=== PATIENT | male | born 1985 | race Caucasian/White ===

== ENCOUNTER 2018-08-14 17:26 | Emergency (ER) | payer MEDICAID, OTHER ==
[~2018-08-14] VITALS: Ht 180.3 cm; Wt 79.6 kg
[2018-08-14 18:56] LABS: CLARITY,URINE CLEAR (Clear); COLOR,URINE YELLOW (Yellow); GLUCOSE, URINE NEGATIVE (Neg); KETONES,URINE NEGATIVE (Neg); LEUKOCYTE ESTERASE ,URINE NEGATIVE (Neg); NITRITES, URINE NEGATIVE (Neg); OCCULT BLOOD,URINE TRACE-INTACT (Neg); PROTEIN,URINE NEGATIVE (Neg); UA COLLECTION TYPE CLN CATCH MIDSTREAM; UROBILINOGEN,URINE 0.2 E.U/dL (0.2-1.0)
[2018-08-14 19:01] LABS: BACTERIA,URINE NONE SEEN /HPF (Neg); RBC,URINE 0-2 /HPF (0-2); SQUAMOUS EPITHELIAL CELL,UR NONE SEEN /LPF (FEW); WBC,URINE NONE SEEN /HPF (0-4)
[2018-08-14 19:04] LABS: URINE AMPHETAMINE SCREEN POSITIVE (Neg); URINE BARBITUATE SCREEN NEGATIVE (Neg); URINE BENZODIAZEPINES SCREEN NEGATIVE (Neg); URINE CANNABINOID SCREEN NEGATIVE (Neg); URINE COCAINE SCREEN NEGATIVE (Neg); URINE METHADONE SCREEN NEGATIVE (Neg); URINE OPIATE SCREEN NEGATIVE (Neg); URINE PHENCYCLIDINE SCREEN NEGATIVE (Neg)
--- NOTE | 2018-08-14 19:27 | NUR ---
tele psych called,
[2018-08-14 19:38] LABS: BASOPHILS % (AUTO) 0.4 % (0-1); EOSINOPHILS # (AUTO) 0.2 X10'3 (0-0.9); EOSINOPHILS % (AUTO) 3.9 % (0-6); HEMATOCRIT 39.2 % (42.0-52.0); HEMOGLOBIN 13.2 g/dl (14.0-17.9); LYMPHOCYTES % (AUTO) 49.7 % (21-51); MEAN CORPUSCULAR HEMOGLOBIN 29.2 PG (27.0-31.0); MEAN CORPUSCULAR HGB CONC 33.5 % (33.0-36.5); MEAN CORPUSCULAR VOLUME 87.1 FL (78-98); MEAN PLATELET VOLUME 8.3 FL (7.4-10.4); MONOCYTES # (AUTO) 0.5 X10'3 (0-0.9); MONOCYTES % (AUTO) 9.5 % (2-12); NEUTROPHILS # (AUTO) 2.1 X10'3 (1.8-7.7); NEUTROPHILS % (AUTO) 36.5 % (42-75); PLATELET COUNT 255 X10'3 (140-440); RED CELL DISTRIBUTION WIDTH 12.6 % (11.5-14.5); WHITE BLOOD COUNT 5.8 X10'3 (4.5-11.0)
[2018-08-14 19:39] LABS: ALANINE AMINOTRANSFERASE 55 U/L (12-78); ALBUMIN 3.5 G/DL (3.4-5.0); ALBUMIN/GLOBULIN RATIO 0.8 (1.1-1.5); ALKALINE PHOSPHATASE 83 IU/L (46-116); ANION GAP 12 (8-16); ASPARTATE AMINO TRANSFERASE 28 U/L (10-37); BILIRUBIN,TOTAL 0.3 MG/DL (0.1-1.0); BLOOD UREA NITROGEN 17 MG/DL (7-18); BUN/CREATININE RATIO 18.3 (5.4-32.0); CALCIUM 8.2 MG/DL (8.5-10.1); CHLORIDE 103 MMOL/L (99-107); CREATININE 0.93 MG/DL (0.60-1.10); POTASSIUM 3.9 MMOL/L (3.5-5.1); SODIUM 140 MMOL/L (135-145); TOTAL CARBON DIOXIDE 25.4 MMOL/L (24-32); TOTAL PROTEIN 7.9 G/DL (6.4-8.2); eGFR > 90 ML/MIN
[2018-08-14 19:41] LABS: GLUCOSE 87 MG/DL (70-104)
[2018-08-14 19:55] LABS: ETHANOL 0.022 GM/DL (0.0-0.010)
[2018-08-14] MEDS ORDERED: ESCI5TAB PO (23:00)
[2018-08-14] MEDS ORDERED: OLAN5TAB3 PO (23:00)
[2018-08-14] MEDS ORDERED: olanzapine 10mg tablet PO PRN (23:25)
[2018-08-14] MEDS ORDERED: OLANZapine **IM** 10 mg inj. IM PRN (23:25)
[2018-08-14] MEDS ORDERED: acetaminophen 325mg tablet PO PRN (23:25)
[2018-08-14] MEDS ORDERED: OLANZapine 2.5MG tablet PO ONE (23:35)
[2018-08-14] MEDS: LORazepam 1 MG tablet PO PRN (23:42)
--- NOTE | 2018-08-15 06:30 | NUR ---
Asleep upon change of shift observation. Undisturbed at this time.
--- NOTE | 2018-08-15 08:30 | NUR ---
Awakened for breakfast and AM medications. Pleasant upon approach. Asked what brought him to the hospital. Patient said he was starting to hear voices saying to kill himself. Evasive when presented with additional questions. Rolled over in bed and closed his eyes.
[2018-08-15] MEDS: CITALOpram 10mg tablet PO SCH (08:46)
[2018-08-15] MEDS: LORazepam 1 MG tablet PO PRN (15:57)
--- NOTE | 2018-08-15 17:29 | NUR ---
Patient slept for the entire day except when awakened for meals. Avoided conversation with staff. At 1555 asked for medication. Annoyed that a new patient had been placed in the bed next to him. Medicated with Ativan and Zyprexa PO.
--- NOTE | 2018-08-15 18:52 | NUR ---
Packet faxed to [facility].
--- NOTE | 2018-08-15 20:14 | NUR ---
PT BECAME AGGITATED AFTER BEING DENIED SNACK SINCE HE HAD JUST ATE DINNER. STARTED TO WALK OUT OF UNIT, SECURITY CALLED TO BEDSIDE AND ABLE TO TALK PT INTO LYING BACK DOWN ON BED. ZYPREXA IM GIVEN AND CRACKERS. TOM CHAMBERS RN IN UNIT TO WITNESS BEHAVIOR.
[2018-08-15] MEDS ORDERED: OLANZapine 2.5MG tablet PO SCH (21:00)
--- NOTE | 2018-08-15 22:10 | NUR ---
SLEEPING, NO FURTHER OUTBURSTS AT THIS TIME.
--- NOTE | 2018-08-15 22:19 | NUR ---
Pt asleep on back. RR 14, even and unlabored. No apparent distress @ this time.
[2018-08-16 05:30] VITALS: BP 102/71
--- NOTE | 2018-08-16 06:55 | NUR ---
Pt sleeping on right side. No distress observed. Continue to monitor.
--- NOTE | 2018-08-16 08:00 | NUR ---
Patient up eating breakfast. No distress observed. Continue to monitor.
[2018-08-16] MEDS: CITALOpram 10mg tablet PO SCH (08:17)
--- NOTE | 2018-08-16 09:50 | NUR ---
Jessica from [facility] attempted to evaluate patient. Patient "would not wake up" for interview. Continue to monitor.
--- NOTE | 2018-08-16 11:55 | NUR ---
Pt sleeping supine. Patient told Jessica from [facility] that he is not suicidal. Pt to be discharged.
--- NOTE | 2018-08-16 13:00 | NUR ---
RN brought patient's clothes and advised patient he was going to be discharged. RN had security standing by. Patient got angry and states he is suicidal and needs help. Patient states he has been on meth and was up for 5 days. Patient denies he needs drug rehab. Jessica from [facility] spoke to patient and told him he told her 3 times that he wasn't having suicidal thoughts. Patient screaming and cussing. Pt refused to sign d/c instructions. Patient escorted out by security.
== END 2018-08-16 13:15 | disposition home or self-care (01) ==
LOC: ER 17:27
DX: F23 Brief psychotic disorder (principal); R45.851 Suicidal ideations; F10.129 Alcohol abuse with intoxication, unspecified; F15.10 Other stimulant abuse, uncomplicated; F17.200 Nicotine dependence, unspecified, uncomplicated; Z88.1 Allergy status to other antibiotic agents; Z79.899 Other long term (current) drug therapy; Y90.9 Presence of alcohol in blood, level not specified
CPT/HCPCS: 36415; 80053; 80305; 80320; 81001; 84443; 85025; 96372; 99284; 99285; J3490

== ENCOUNTER 2018-08-30 07:08 | Emergency (ER) | payer MEDICAID ==
[~2018-08-30] VITALS: Ht 180.3 cm; Wt 76.5 kg
[~2018-08-30 07:08] MED LIST: ESCI5TAB PO; OLAN5TAB3 PO
--- NOTE | 2018-08-30 07:15 | NUR ---
Patient brought back from Triage to Bed 24 stating he felt suicidal. All personal belongings inventoried. Patient made comfortable in bed.
[2018-08-30] MEDS ORDERED: OLAN5TAB3 PO (07:41)
[2018-08-30] MEDS ORDERED: ESCI5TAB PO (07:41)
[2018-08-30] MEDS ORDERED: EMTR1TAB18 PO (07:41)
[2018-08-30] MEDS ORDERED: DOLU50TA PO (07:41)
[2018-08-30] MEDS ORDERED: HYDR-3686 PO (07:41)
[2018-08-30 07:57] LABS: CLARITY,URINE CLEAR (Clear); COLOR,URINE YELLOW (Yellow); GLUCOSE, URINE NEGATIVE (Neg); KETONES,URINE NEGATIVE (Neg); LEUKOCYTE ESTERASE ,URINE NEGATIVE (Neg); NITRITES, URINE NEGATIVE (Neg); OCCULT BLOOD,URINE NEGATIVE (Neg); PROTEIN,URINE NEGATIVE (Neg); UROBILINOGEN,URINE 0.2 E.U/dL (0.2-1.0)
[2018-08-30 08:00] LABS: UA COLLECTION TYPE CLN CATCH MIDSTREAM
--- NOTE | 2018-08-30 08:00 | NUR ---
Served breakfast. Ate 90% of his meal. Resting in bed with eyes closed but remains awake.
[2018-08-30 08:04] LABS: URINE AMPHETAMINE SCREEN NEGATIVE (Neg); URINE BARBITUATE SCREEN NEGATIVE (Neg); URINE BENZODIAZEPINES SCREEN POSITIVE (Neg); URINE CANNABINOID SCREEN NEGATIVE (Neg); URINE COCAINE SCREEN NEGATIVE (Neg); URINE METHADONE SCREEN NEGATIVE (Neg); URINE OPIATE SCREEN NEGATIVE (Neg); URINE PHENCYCLIDINE SCREEN NEGATIVE (Neg)
--- NOTE | 2018-08-30 09:00 | NUR ---
Admission interview initiated. Patient states "I don't want to talk." Requested patient answer required questions to the best of his ability. Patient agreed to do so. Affect and mood depressed. Patient states he "feels suicidal." Does not elaborate. When asked what he would do if he was to leave here patient stated "Kill myself." Gave one word answers to staff throughout admission process. Nonspecific about reasons for SI or how he would follow through with ending his life.
[2018-08-30 09:17] LABS: BASOPHILS % (AUTO) 0.4 % (0-1); EOSINOPHILS # (AUTO) 0.2 X10'3 (0-0.9); EOSINOPHILS % (AUTO) 1.6 % (0-6); HEMATOCRIT 42.1 % (42.0-52.0); HEMOGLOBIN 14.1 g/dl (14.0-17.9); LYMPHOCYTES # (AUTO) 2.9 X10'3 (1.1-4.8); LYMPHOCYTES % (AUTO) 26.5 % (21-51); MEAN CORPUSCULAR HEMOGLOBIN 28.7 PG (27.0-31.0); MEAN CORPUSCULAR HGB CONC 33.5 % (33.0-36.5); MEAN CORPUSCULAR VOLUME 85.8 FL (78-98); MEAN PLATELET VOLUME 7.2 FL (7.4-10.4); MONOCYTES # (AUTO) 0.8 X10'3 (0-0.9); MONOCYTES % (AUTO) 6.9 % (2-12); NEUTROPHILS % (AUTO) 64.6 % (42-75); PLATELET COUNT 337 X10'3 (140-440); RED BLOOD COUNT 4.91 X10'6 (4.70-6.10); RED CELL DISTRIBUTION WIDTH 12.3 % (11.5-14.5)
[2018-08-30 09:22] LABS: WHITE BLOOD COUNT 10.9 X10'3 (4.5-11.0)
[2018-08-30] MEDS: TIVICAY 50 MG PO SCH (09:24)
[2018-08-30] MEDS: CITALOpram 10mg tablet PO SCH (09:24)
[2018-08-30] MEDS: DESCOVY PO SCH (09:25)
[2018-08-30 09:30] LABS: ALANINE AMINOTRANSFERASE 34 U/L (12-78); ALBUMIN 3.4 G/DL (3.4-5.0); ALBUMIN/GLOBULIN RATIO 0.6 (1.1-1.5); ALKALINE PHOSPHATASE 89 IU/L (46-116); ANION GAP 11 (8-16); ASPARTATE AMINO TRANSFERASE 21 U/L (10-37); BILIRUBIN,TOTAL 0.4 MG/DL (0.1-1.0); BLOOD UREA NITROGEN 14 MG/DL (7-18); BUN/CREATININE RATIO 13.9 (5.4-32.0); CALCIUM 8.9 MG/DL (8.5-10.1); CHLORIDE 100 MMOL/L (99-107); CREATININE 1.01 MG/DL (0.60-1.10); ETHANOL < 0.010 GM/DL (0.0-0.010); GLUCOSE 89 MG/DL (70-104); SODIUM 137 MMOL/L (135-145); TOTAL CARBON DIOXIDE 26.4 MMOL/L (24-32); TOTAL PROTEIN 8.7 G/DL (6.4-8.2); eGFR 85 ML/MIN
--- NOTE | 2018-08-30 09:30 | NUR ---
Med rec completed, signed by Dr. Coates and sent to the pharmacy. Medications administered as ordered.
--- NOTE | 2018-08-30 10:10 | NUR ---
Telepsyche in process at this time.
--- NOTE | 2018-08-30 12:30 | NUR ---
Dipti from [facility] at bedside to evaluate patient for possible 5150 criteria. Patient met 5150 criteria and was placed on a 72 hour hold.
[2018-08-30] MEDS ORDERED: diazepam 5mg tablet PO ONE (13:00)
--- NOTE | 2018-08-30 13:00 | NUR ---
Addendum Patient slept this AM except when interviwed by [facility]
--- NOTE | 2018-08-30 13:00 | NUR ---
Asleep until lunchtime. Awakened for lunch. Ate a small amount of food. Medicated as ordered. Returned to sleep immediately afterwards.
--- NOTE | 2018-08-30 15:57 | NUR ---
Remains asleep at this time. Breathing WNL at 16 breaths a minute. Color pink.
--- NOTE | 2018-08-30 18:54 | NUR ---
Pt. ate 100% of dinner tray.
[2018-08-30] MEDS: hydrOXYzine 25 MG tablet PO SCH (20:19)
[2018-08-30] MEDS: OLANZapine 5mg rapidly disint. tablet PO SCH (20:19)
--- NOTE | 2018-08-30 22:17 | NUR ---
pt. sleeping at this time. will continue to monitor.
--- NOTE | 2018-08-30 23:23 | NUR ---
Pt asleep on right side. RR 14, even and unlabored. No apparent distress at this time.
--- NOTE | 2018-08-31 01:41 | NUR ---
Pt asleep on right side. RR 13, even and unlabored. No apparent distress at this time.
--- NOTE | 2018-08-31 02:06 | NUR ---
pt. sleeping at this time. no s/s of acute distress. will continue to monitor.
--- NOTE | 2018-08-31 03:15 | NUR ---
pt. sleeping in supine position. no acute distress noted. will continue to monitor.
--- NOTE | 2018-08-31 05:20 | NUR ---
pt. sleeping at this time.
--- NOTE | 2018-08-31 06:25 | NUR ---
Patient sleeping supine. No restlessness observed. Continue to monitor.
--- NOTE | 2018-08-31 08:10 | NUR ---
Patient just finishing eating breakfast. RN went to speak to patient and patient very depressed and didn't want to talk. Patient states he is still feeling suicidal but he didn't have a plan. Patient pulled the covers over his head and turned over. Continue to monitor.
[2018-08-31] MEDS: TIVICAY 50 MG PO SCH (08:11)
[2018-08-31] MEDS: CITALOpram 10mg tablet PO SCH (08:11)
[2018-08-31] MEDS: hydrOXYzine 25 MG tablet PO SCH ×2 (08:11→20:46)
[2018-08-31] MEDS: DESCOVY PO SCH (08:12)
--- NOTE | 2018-08-31 08:50 | NUR ---
Note [place] in EDM - 08/31/18 at 0936 by RIGO Pt ate breakfast and up to BR, steady gait. Patient up to nurses station wanting something for body aches. RN advised patient that she just gave him 5 mg of Valium 20 minutes ago and to let that medication work. RN advised pt that if he still needs something after 0900 to let RN know and she would request ibuprofen from the doctor. Patient went back to his bed and fell asleep. Continue to monitor.
--- NOTE | 2018-08-31 09:45 | NUR ---
Patient continues to sleep, now on right side. No distress observed. Continue to monitor.
--- NOTE | 2018-08-31 12:14 | NUR ---
Patient up to BR, steady gait. No distress observed. Continue to monitor.
--- NOTE | 2018-08-31 13:40 | NUR ---
Patient sleeping supine. No distress observed. Continue to monitor.
--- NOTE | 2018-08-31 15:45 | NUR ---
Patient sleeping supine. No distress observed. Continue to monitor.
[2018-08-31] MEDS ORDERED: diphenhydrAMINE 25mg capsule PO ONE (18:25)
--- NOTE | 2018-08-31 19:50 | NUR ---
SPOKE TO SAMI BARROS PATH TO WELLNESS DISCUSSED PATIENT STATUS PATIENT HAS A FLAT AFFECT, APPEARS DEPRESSED AND STATES THAT HE WOULD COMMIT SUICIDE BY TAKING PILLS. PATIENT STATES THAT HE TOOK A BUS HERE FROM [facility], BUT WOULD NOT STATE HOW HE CHOSE [facility] FROM A OTHER [facility] IN [place]
[2018-08-31] MEDS: OLANZapine 5mg rapidly disint. tablet PO SCH (20:46)
--- NOTE | 2018-08-31 20:48 | NUR ---
PATIENT LAYING SUPINE WITH EYES OPEN
--- NOTE | 2018-08-31 22:48 | NUR ---
PATIENT OFFERED ITEMS FOR ORAL CARE: "LATER"
--- NOTE | 2018-09-01 02:00 | NUR ---
pt asleep on back;rr 13, even & unlabored;no apparent distress @ this time
--- NOTE | 2018-09-01 04:08 | NUR ---
Pt asleep on back. RR 13, ever and unlabored. No apparent distress @ this time.
--- NOTE | 2018-09-01 06:30 | NUR ---
Asleep upon change of shift observation. Breathing even and WNL. Undisturbed at this time
[2018-09-01] MEDS: CITALOpram 10mg tablet PO SCH (08:19)
[2018-09-01] MEDS: hydrOXYzine 25 MG tablet PO SCH ×2 (08:19→20:26)
[2018-09-01] MEDS: TIVICAY 50 MG PO SCH (08:20)
[2018-09-01] MEDS: DESCOVY PO SCH (08:20)
--- NOTE | 2018-09-01 08:30 | NUR ---
Awakened for breakfast and AM medications. Annoyed upon staff approach. States "Leave me alone, I want to sleep." Accepted medications, ate his breakfast, used the bathroom, returned to bed and went to sleep.
--- NOTE | 2018-09-01 12:58 | NUR ---
relieving RN for lunch, pt is sitting on bed eating lunch
--- NOTE | 2018-09-01 14:06 | NUR ---
Up to bathroom. Patient heard to be coughing on occasion. Prefers not to interact with staff.
--- NOTE | 2018-09-01 15:51 | NUR ---
Awake and asking staff for fluids. Patient provided with juice and fresh water.
[2018-09-01] MEDS ORDERED: benzonatate 100mg capsule PO ONE (18:05)
--- NOTE | 2018-09-01 18:37 | NUR ---
Assumed care of pt. 5150 due to S/I, waiting for placement in a F for treatment.
[2018-09-01] MEDS: OLANZapine 5mg rapidly disint. tablet PO SCH (20:26)
--- NOTE | 2018-09-01 20:35 | NUR ---
Pt given evening meds, which he took without problems, he has no complaints except continued cough which seemed unrelieved with meds. He continues to report depression and thoughts and suicide.
--- NOTE | 2018-09-01 22:32 | NUR ---
Pt lying on back, RR even and unlabored, no signs of distress.
--- NOTE | 2018-09-02 01:07 | NUR ---
Pt lying on R side, RR even and unlabored, no signs of distress.
--- NOTE | 2018-09-02 03:16 | NUR ---
Pt lying on L side, RR even and unlabored, no signs of distress.
--- NOTE | 2018-09-02 05:19 | NUR ---
Pt resting on R side, RR even and unlabored, no signs of distress.
[2018-09-02 05:48] VITALS: BP 113/69
[2018-09-02] MEDS: TIVICAY 50 MG PO SCH (08:46)
[2018-09-02] MEDS: CITALOpram 10mg tablet PO SCH (08:46)
[2018-09-02] MEDS: DESCOVY PO SCH (08:46)
[2018-09-02] MEDS: hydrOXYzine 25 MG tablet PO SCH (08:46)
[2018-09-02] MEDS ORDERED: diphenhydrAMINE 25mg capsule PO ONE (09:15)
[2018-09-02] MEDS ORDERED: CITA-311 PO (16:24)
== END 2018-09-02 14:45 | disposition home or self-care (01) ==
LOC: ER 07:09
DX: R45.851 Suicidal ideations (principal); F20.9 Schizophrenia, unspecified; F15.90 Other stimulant use, unspecified, uncomplicated; F29 Unspecified psychosis not due to a substance or known physiological condition; Z88.1 Allergy status to other antibiotic agents; Z79.899 Other long term (current) drug therapy
CPT/HCPCS: 36415; 80053; 80305; 80320; 81003; 85025; 99285; Q0163; Q0177

== ENCOUNTER 2018-09-02 13:40 | Inpatient (IN) | payer MEDICAID ==
[~2018-09-02] VITALS: Ht 180.3 cm; Wt 76.1 kg
[~2018-09-02 13:40] MED LIST changes: +DOLU50TA PO; +EMTR1TAB18 PO; +HYDR-3686 PO
--- NOTE | 2018-09-02 14:45 | NUR ---
Admit note: Pt admitted from the Emergency Department for depression, suicidal ideation. Pt admits to feeling suicidal today and depressed. Pt had a new 5150 written today by [facility]. Pts inventory completed in the ER. PT showers upon arrival. Pt cooperative with questions and admission process. Pt arrived on unit at 1445. Pt states feeling depressed and suicidal. Pt states he has overdosed once before. Pt states he has been admitted to [facility] twice. PT states having history of depression and HIV. Pt admitted by Harsha ORNELAS.
[2018-09-02] MEDS ORDERED: magnesium hydroxide 30ml (MOM) UD suspension PO PRN (16:10)
[2018-09-02] MEDS ORDERED: mag hydrox/Alum hydrox/simeth 30ml oral suspension PO PRN (16:10)
[2018-09-02] MEDS ORDERED: tuberculin, purif. prot. deriv. 5 units/0.1ml ID ONE (16:10)
[2018-09-02] MEDS ORDERED: CITA-311 PO (16:24)
[2018-09-02 19:00] VITALS: BP 123/81
[2018-09-02] MEDS: hydrOXYzine 25 MG tablet PO SCH (20:40)
[2018-09-02] MEDS: acetaminophen 325mg tablet PO PRN (20:43)
[2018-09-02] MEDS ORDERED: OLANZapine 5mg rapidly disint. tablet PO SCH (21:00)
[2018-09-02] MEDS: guaiFENesin/DM 10ml UD oral syrup PO PRN (21:14)
--- NOTE | 2018-09-03 05:22 | NUR ---
Chief Complaint Legal hold:5150 Client involuntary status for DTS. Report received from Stefany GALLARDO with use of SBAR. Why are they here:Pt here due to thoughts of suicide with plan to OD on meds, depression, hx of previous OD, currently homeless. Diagnosis/presenting symptoms:depression/ S/I Assessment What has happened this shift:Pt visible on the unit, watching tv in recreation room and interacting with staff/peers. He continues to endorse depressed mood and thoughts of suicide (denies current intent/plan). Pt was pleasant and cooperative, did c/o sore throat and cough so Tylenol given and order obtained for Robitussin DM. S/I, H/I:still having thoughts of suicide, denies current intent A/VH: denies Sleep:reports sleeping well ADL's: independent Group attendance:no groups scheduled this shift Were meds taken:yes Any med S/E: denies and none observed Mental Status Exam Appearance:well groomed Eye contact:good Behavior:pleasant and cooperative Speech:normal rate, rhthym and volume Mood:depressed Affect:congruent to mood Thought process:linear Thought Content:WNL, no delusions Cognition:intact Insight:fair Judgment:fair Interventions PRN's used:Tylenol, Robitussin DM Therapeutic interventions:1:1, assessment, medication administration and monitored effects and side effects to meds, Q15 checks for safety Restraints/seclusion/emergency medication:none Justification of Continued Inpatient Treatment:Pt admitted due to DTS and continues to endorse thoughts of suicide and feelings of depression.
[2018-09-03 07:51] VITALS: BP 115/71
[2018-09-03] MEDS ORDERED: citalopram 20mg tablet PO SCH (08:00)
[2018-09-03] MEDS ORDERED: escitalopram 20mg tablet PO SCH (08:00)
[2018-09-03] MEDS ORDERED: CITALOpram 10mg tablet PO SCH (08:00)
[2018-09-03] MEDS: citalopram 20mg tablet PO SCH (08:09)
[2018-09-03] MEDS: guaiFENesin/DM 10ml UD oral syrup PO PRN ×2 (08:09→16:45)
[2018-09-03] MEDS: hydrOXYzine 25 MG tablet PO SCH ×2 (08:09→20:17)
[2018-09-03] MEDS: DESCOVY PO SCH (08:13)
[2018-09-03] MEDS: TIVICAY 50 MG PO SCH (08:13)
--- NOTE | 2018-09-03 17:19 | NUR ---
NURSING PROGRESS NOTE Legal hold:5150 Client involuntary status for DTS. Report received from Rafaela GALLARDO with use of SBAR. Why are they here:Pt here due to thoughts of suicide with plan to OD on meds, depression, hx of previous OD, currently homeless. Diagnosis/presenting symptoms:depression/ S/I Assessment What has happened this shift: The patient isolated to room most of day, ate meals and did not attend groups. he watched TV in late afternoon with another patient. he refused to talk with nurse or have assessment. Angry and irritable. Had CXR which was negative. Gave Matti x2 for cough. S/I, H/I: refused to answer A/VH: refused Sleep:isolated to room ADL's: independent Group attendance:none Were meds taken:yes Any med S/E: denies and none observed Mental Status Exam Appearance:well groomed Eye contact: poor Behavior: depressed, irritable Speech: minimal, angry Mood:depressed Affect: irritable Thought process:goal directed Thought Content: unable to assess Cognition:intact Insight:poor Judgment:poor Interventions PRN's used: Matti HAMMOND Therapeutic interventions:1:1, assessment, medication administration and monitored effects and side effects to meds, Q15 checks for safety Restraints/seclusion/emergency medication:none Justification of Continued Inpatient Treatment:Pt admitted due to DTS and continues to endorse thoughts of suicide and feelings of depression.
[2018-09-03] MEDS: acetaminophen 325mg tablet PO PRN (20:16)
[2018-09-03] MEDS: OLANZapine 5mg rapidly disint. tablet PO SCH (20:17)
[2018-09-03 20:49] VITALS: BP 117/79
--- NOTE | 2018-09-03 23:19 | NUR ---
Chief Complaint Legal hold:5150 Client involuntary status for DTS. Report received from Amy GALLARDO with use of SBAR. Why are they here:Pt here due to thoughts of suicide with plan to OD on meds, depression, hx of previous OD, currently homeless. Diagnosis/presenting symptoms:depression/ S/I Assessment What has happened this shift:Pt watching tv in recreation room and was social with staff and peers. He continues to endores depressed mood with thoughts of suicide, but contracts for safety. Pt continues to c/o cough and sore throat. Tylenol given for sore throat pain which was helpful. Pt took evening meds and then went to bed, he appears to be sleeping well. S/I, H/I:continues to endorse thoughts of suicide, denies any current plan/intent A/VH: denies Sleep:sleeping well ADL's: independent Group attendance:no groups scheduled this shift Were meds taken:yes Any med S/E: denies and none observed Mental Status Exam Appearance:well groomed Eye contact:good Behavior:pleasant and cooperative Speech:normal rate, rhthym and volume Mood:depressed Affect:restricted Thought process:linear Thought Content:WNL, no delusions Cognition:intact Insight:fair Judgment:fair Interventions PRN's used:Tylenol Therapeutic interventions:1:1, assessment, medication administration and monitored effects and side effects to meds, Q15 checks for safety, education on changes in meds, pt verbalized understanding. Restraints/seclusion/emergency medication:none Justification of Continued Inpatient Treatment:Pt admitted due to DTS and continues to endorse thoughts of suicide and feelings of depression.
[2018-09-04] MEDS: DESCOVY PO SCH (07:53)
[2018-09-04] MEDS: TIVICAY 50 MG PO SCH (07:53)
[2018-09-04] MEDS: citalopram 20mg tablet PO SCH (07:53)
[2018-09-04] MEDS: hydrOXYzine 25 MG tablet PO SCH ×2 (07:53→20:31)
[2018-09-04 08:00] VITALS: BP 107/72
[2018-09-04 08:28] LABS: CHOL/HDL RATIO 6.1 (0.00-4.99); CHOLESTEROL 122 MG/DL (0-200); HDL CHOLESTEROL 20 MG/DL (35-60); LDL CHOLESTEROL 82 MG/DL (50-100); TRIGLYCERIDES 140 MG/DL (20-135)
[2018-09-04 08:50] LABS: HEMOGLOBIN A1C 5.7 % (4.5-6.2)
[2018-09-04] MEDS: acetaminophen 325mg tablet PO PRN ×2 (12:17→19:12)
[2018-09-04] MEDS: guaiFENesin/DM 10ml UD oral syrup PO PRN ×2 (12:18→19:12)
--- NOTE | 2018-09-04 16:57 | NUR ---
Nursing Progress Note: Chief Complaint Legal hold:5150 Client involuntary status for DTS. Report received from Rafaela GALLARDO with use of SBAR. Why are they here:Pt here due to thoughts of suicide with plan to OD on meds, depression, hx of previous OD, currently homeless. Diagnosis/presenting symptoms:depression/ S/I Assessment Received patient awake in bed with flat to angry affect. Patient resistive to interaction with staff. Patient states he is still very depressed and said its actually getting worse. Patient denied suicidal thoughts at this time and denied auditory hallucinations. Patient refused to get up for breakfast, but did attend lunch. Pt refused both groups and remained laying on his bed. Patient complained of sore throat and stated he was coughing up yellow to green mucus. Hospitalist came and saw him but did not add any additional orders at this time. Patient given Tylenol and cough syrup for throat pain which was mildly effective. Patient did smile and laugh at one point during the day after lunch to a joke. Other than that patient remained flat and depressed all shift. Patient refused 1 to 1 with secondary social studies teacher. S/I, H/I:continues to endorse thoughts of suicide, denies any current plan/intent A/VH: denies Sleep:sleeping well ADL's: independent Group attendance:no groups scheduled this shift Were meds taken:yes Any med S/E: denies and none observed Mental Status Exam Appearance:well groomed Eye contact:good Behavior:pleasant and cooperative Speech: normal rate, rhythm and volume Mood:depressed Affect:restricted Thought process:linear Thought Content:WNL, no delusions Cognition:intact Insight:fair Judgment:fair Interventions PRN's used:Tylenol Therapeutic interventions:1:1, assessment, medication administration and monitored effects and side effects to meds, Q15 checks for safety, education on changes in meds, pt verbalized understanding. Restraints/seclusion/emergency medication:none Justification of Continued Inpatient Treatment:Pt admitted due to DTS and continues to endorse thoughts and feelings of depression.
[2018-09-04 19:00] VITALS: BP 130/75
[2018-09-04] MEDS: OLANZapine 5mg rapidly disint. tablet PO SCH (20:31)
--- NOTE | 2018-09-05 03:51 | NUR ---
Chief Complaint Legal hold:5150 Client involuntary status for DTS. Report received from Magno GALLARDO with use of SBAR. Why are they here:Pt here due to thoughts of suicide with plan to OD on meds, depression, hx of previous OD, currently homeless. Diagnosis/presenting symptoms:depression/ S/I Assessment What has happened this shift:Pt up and visible on the unit, he watches tv, interacts with peers and staff, and pt took shower. He continues to c/o cold s/s and not feeling well, but did state his mood is slightly better tonight. He continues to report some thoughts of suicide, but denies plan/intent. Discussed Rx of Zyprexa and why he takes it, and he voiced some concerns about getting diabetes from the Zyprexa, educated on this and pt verbalized understanding. S/I, H/I:continues to endorse thoughts of suicide, denies any current plan/intent A/VH: denies current hallucinations Sleep:sleeping well ADL's: independent Group attendance:no groups scheduled this shift Were meds taken:yes Any med S/E: denies and none observed Mental Status Exam Appearance:well groomed Eye contact:good Behavior:pleasant and cooperative Speech:normal rate, and volume Mood:depressed Affect:restricted Thought process:linear Thought Content:WNL, no delusions Cognition:intact Insight:fair Judgment:fair Interventions PRN's used:Tylenol. Robitussin DM Therapeutic interventions:1:1, assessment, medication administration and monitored effects and side effects to meds, Q15 checks for safety, education on side effects to Zyprexa, pt verbalized understanding. Restraints/seclusion/emergency medication:none Justification of Continued Inpatient Treatment:Pt admitted due to DTS and continues to endorse thoughts of suicide and feelings of depression.
[2018-09-05 07:52] VITALS: BP 109/71
[2018-09-05] MEDS: DESCOVY PO SCH (07:55)
[2018-09-05] MEDS: TIVICAY 50 MG PO SCH (07:55)
[2018-09-05] MEDS: hydrOXYzine 25 MG tablet PO SCH ×2 (07:55→20:41)
[2018-09-05] MEDS: citalopram 20mg tablet PO SCH (07:56)
[2018-09-05 13:07] LABS: BASOPHILS % (AUTO) 0.2 % (0-1); EOSINOPHILS # (AUTO) 0.4 X10'3 (0-0.9); EOSINOPHILS % (AUTO) 4.2 % (0-6); HEMATOCRIT 41.7 % (42.0-52.0); HEMOGLOBIN 14.4 g/dl (14.0-17.9); LYMPHOCYTES # (AUTO) 2.9 X10'3 (1.1-4.8); LYMPHOCYTES % (AUTO) 29.5 % (21-51); MEAN CORPUSCULAR HEMOGLOBIN 29.8 PG (27.0-31.0); MEAN CORPUSCULAR HGB CONC 34.6 % (33.0-36.5); MEAN PLATELET VOLUME 7.3 FL (7.4-10.4); MONOCYTES # (AUTO) 0.8 X10'3 (0-0.9); MONOCYTES % (AUTO) 7.9 % (2-12); NEUTROPHILS # (AUTO) 5.6 X10'3 (1.8-7.7); NEUTROPHILS % (AUTO) 58.2 % (42-75); PLATELET COUNT 386 X10'3 (140-440); RED BLOOD COUNT 4.85 X10'6 (4.70-6.10); RED CELL DISTRIBUTION WIDTH 13.2 % (11.5-14.5); WHITE BLOOD COUNT 9.7 X10'3 (4.5-11.0)
[2018-09-05 13:15] LABS: ALBUMIN 3.3 G/DL (3.4-5.0); ANION GAP 10 (8-16); BLOOD UREA NITROGEN 11 MG/DL (7-18); BUN/CREATININE RATIO 10.9 (5.4-32.0); CALCIUM 8.5 MG/DL (8.5-10.1); CHLORIDE 99 MMOL/L (99-107); CREATININE 1.01 MG/DL (0.60-1.10); GLUCOSE 99 MG/DL (70-104); POTASSIUM 4.4 MMOL/L (3.5-5.1); SODIUM 135 MMOL/L (135-145); TOTAL CARBON DIOXIDE 25.6 MMOL/L (24-32); eGFR 85 ML/MIN
--- NOTE | 2018-09-05 14:44 | NUR ---
Nursing Progress Note: Chief Complaint: anhedonia, MDD, anxiety Legal hold:5150 Client involuntary status for DTS. Report received from Rafaela GALLARDO with use of SBAR. Why are they here:Pt here due to thoughts of suicide with plan to OD on meds, depression, hx of previous OD, currently homeless. Diagnosis/presenting symptoms:depression/ S/I Assessment Patient was laying in bed at change of shift. He takes his mediation without incident. He is still complaining of green sputum. He has clear breath sounds and his chest x ray was negative. Labs were ordered including calcitonin levels. Patient did socialize in the small group room during the shift. S/I, H/I:continues to endorse thoughts of suicide, denies any current plan/intent A/VH: denies Sleep:sleeping well, naps ADL's: independent Group attendance:no groups scheduled this shift Were meds taken:yes Any med S/E: denies and none observed Mental Status Exam Appearance:well groomed Eye contact:good Behavior:pleasant and cooperative Speech: normal rate, rhythm and volume Mood:depressed Affect:restricted Thought process:linear Thought Content:WNL, no delusions Cognition:intact Insight:fair Judgment:fair Interventions PRN's used:none Therapeutic interventions:1:1, assessment, medication administration and monitored effects and side effects to meds, Q15 checks for safety, education on changes in meds, pt verbalized understanding. Restraints/seclusion/emergency medication:none Justification of Continued Inpatient Treatment:Pt admitted due to DTS and continues to endorse thoughts and feelings of depression.
[2018-09-05] MEDS: guaiFENesin/DM 10ml UD oral syrup PO PRN (19:17)
[2018-09-05] MEDS: acetaminophen 325mg tablet PO PRN (19:17)
[2018-09-05 19:59] VITALS: BP 114/69
[2018-09-05] MEDS: OLANZapine 5mg rapidly disint. tablet PO SCH (20:41)
--- NOTE | 2018-09-05 23:18 | NUR ---
Nursing Progress Note: Chief Complaint: anhedonia, MDD, anxiety Legal hold:5150 Client involuntary status for DTS. Report received from William GALLARDO with use of SBAR. Why are they here:Pt here due to thoughts of suicide with plan to OD on meds, depression, hx of previous OD, currently homeless. Diagnosis/presenting symptoms:depression/ S/I Assessment Patient was watching TV is community room with other pts quietly. Pt was pleasant with newswriter and engaged in conversation with good eye contact. Regrind Mill Operator asks if pt is still feeling suicidal and he replies, "I am still suicidal and I am so depressed." He says that his throat is still hurting and he reports green mucus being coughed up. Pt said Robitussin does help this feeling. He is worried about a place to stay after discharge. S/I, H/I: suicidal ...denies any current plan/intent A/VH: denies Sleep:see sleep assessment notation ADL's: independent Group attendance:no groups scheduled, overnight caregiver Were meds taken: yes Any med S/E: denies and none observed Mental Status Exam Appearance:well groomed Eye contact:good Behavior:pleasant and cooperative Speech: normal rate, rhythm and volume Mood:elevated Affect: pleasant Thought process:linear Thought Content:WNL, no delusions Cognition:intact Insight:fair Judgment:fair Interventions PRN's used:none Therapeutic interventions:1:1, assessment, medication administration and monitored effects and side effects to meds, Q15 checks for safety, education on changes in meds, pt verbalized understanding. Restraints/seclusion/emergency medication:none Justification of Continued Inpatient Treatment:Pt admitted due to DTS and continues to endorse thoughts and feelings of depression.
[2018-09-06] MEDS: DESCOVY PO SCH (07:14)
[2018-09-06] MEDS: hydrOXYzine 25 MG tablet PO SCH ×2 (07:14→20:57)
[2018-09-06] MEDS: TIVICAY 50 MG PO SCH (07:14)
[2018-09-06] MEDS: citalopram 20mg tablet PO SCH (07:14)
[2018-09-06] MEDS: guaiFENesin/DM 10ml UD oral syrup PO PRN ×2 (07:14→16:20)
[2018-09-06 08:00] VITALS: BP 113/66
--- NOTE | 2018-09-06 13:17 | NUR ---
Nursing Progress Note: Chief Complaint: suicidal ideation Legal hold:voluntary Client voluntary status for DTS. Report received from Cande GALLARDO with use of SBAR. Why are they here: Pt here due to thoughts of suicide with plan to OD on meds, depression, hx of previous OD, currently homeless. Diagnosis/presenting symptoms:depression/ S/I Assessment Patient was awakened for medications and assessment. He was cooperative with medications. He got up for breakfast. After breakfast he was watching a movie in the group room. He attended morning group. When asked about group he states "I don't know. I don't remember. You are freaking me out. I am working with the doctor. Go away. I don't want to talk to you. I will talk to the doctor." When asked about his mood patietn states he is suicidal and depressed. S/I, H/I:continues to endorse thoughts of suicide, denies any current plan A/VH: denies Sleep:sleeping well, naps s lot during the day ADL's: independent, showers at night Group attendance: yes Were meds taken:yes Any med S/E: denies and none observed Mental Status Exam Appearance:clean, disheveled Eye contact: poor Behavior: resistant, dismissive, uncooperative Speech: normal rate, rhythm and volume Mood:depressed Affect:restricted Thought process: guarded Thought Content: unable to assess Cognition:intact Insight:poor Judgment:fair Interventions PRN's used:none Therapeutic interventions:1:1, assessment, medication administration and monitored effects and side effects to meds, Q15 checks for safety, education on changes in meds, pt verbalized understanding. Restraints/seclusion/emergency medication:none Justification of Continued Inpatient Treatment:Pt admitted due to DTS and continues to endorse thoughts of suicide.
[2018-09-06] MEDS: azithromycin 250mg tablet PO SCH (15:32)
[2018-09-06 19:34] VITALS: BP 120/74
[2018-09-06] MEDS: OLANZapine 5mg rapidly disint. tablet PO SCH (20:58)
[2018-09-06] MEDS: acetaminophen 325mg tablet PO PRN (20:59)
--- NOTE | 2018-09-06 23:01 | NUR ---
Nursing Progress Note: Chief Complaint: anhedonia, MDD, anxiety Legal hold:5150 Client involuntary status for DTS. Report received from William GALLARDO with use of SBAR. Why are they here:Pt here due to thoughts of suicide with plan to OD on meds, depression, hx of previous OD, currently homeless. Diagnosis/presenting symptoms:depression/ S/I Assessment Patient watches TV in the group room with another patient. Turning Machine Operator approaches pt and asks how he is doing today. He responds, "I can't talk, when I talk I cough." He still says he feels suicidal and depressed. He has no plan. Pt seems content just watching TV and taling with peers. S/I, H/I: suicidal ...denies any current plan/intent A/VH: denies Sleep:see sleep assessment notation ADL's: independent Group attendance:no groups scheduled, night guard Were meds taken: yes Any med S/E: denies and none observed Mental Status Exam Appearance:well groomed Eye contact:good Behavior:pleasant and cooperative Speech: normal rate, rhythm and volume Mood:elevated Affect: pleasant Thought process:linear Thought Content:WNL, no delusions Cognition:intact Insight:fair Judgment:fair Interventions PRN's used:none Therapeutic interventions:1:1, assessment, medication administration and monitored effects and side effects to meds, Q15 checks for safety, education on changes in meds, pt verbalized understanding. Restraints/seclusion/emergency medication:none Justification of Continued Inpatient Treatment:Pt admitted due to DTS and continues to endorse thoughts and feelings of depression.
[2018-09-07] MEDS: citalopram 20mg tablet PO SCH (07:39)
[2018-09-07] MEDS: azithromycin 250mg tablet PO SCH (07:39)
[2018-09-07] MEDS: hydrOXYzine 25 MG tablet PO SCH ×2 (07:39→20:21)
[2018-09-07] MEDS: DESCOVY PO SCH (07:40)
[2018-09-07] MEDS: TIVICAY 50 MG PO SCH (07:40)
[2018-09-07] MEDS: guaiFENesin/DM 10ml UD oral syrup PO PRN ×2 (07:40→19:02)
[2018-09-07 07:42] VITALS: BP 105/63
--- NOTE | 2018-09-07 09:59 | NUR ---
Initial: Pt admitted to [facility] for depression. Pt currently on a regular diet with documented PO intake 100% meeting nutrient needs. LBM 09/06. No edema or wounds. No nutrition diagnosis at this time. Will continue to follow. Recommendations: 1) Continue with regular diet 2) Weekly wt Addendum: 09/07/18 at [address] Amended: Links added.
--- NOTE | 2018-09-07 10:00 | NUR ---
Initial: Pt admitted to [facility] for depression. Pt currently on a regular diet with documented PO intake 100% meeting nutrient needs. LBM 09/06. No edema or wounds. No nutrition diagnosis at this time. Will continue to follow. Recommendations: 1) Continue with regular diet 2) Weekly wt Addendum: 09/07/18 at [address] Amended: Links added.
--- NOTE | 2018-09-07 13:18 | NUR ---
Nursing Progress Note: Chief Complaint: suicidal ideation Legal hold: voluntary Client voluntary status for DTS. Report received from Cande GALLARDO with use of SBAR. Why are they here: Pt here due to thoughts of suicide with plan to OD on meds, depression, hx of previous OD, currently homeless. Diagnosis/presenting symptoms:depression/ S/I Assessment Patient was awakened for medications and assessment. He was cooperative with medications. He got up for breakfast. After breakfast he took a nap. He kept a low profile on the unit. He did attend group but did not interact much with staff or other patients. Most of the day was spent in bed. S/I, H/I:continues to endorse thoughts of suicide, denies any current plan A/VH: denies Sleep:sleeping well, naps a lot during the day ADL's: independent, showers at night Group attendance: yes Were meds taken:yes Any med S/E: denies and none observed Mental Status Exam Appearance:clean, neat Eye contact: poor Behavior: resistant, dismissive, uncooperative Speech: normal rate, rhythm and volume Mood:depressed Affect:restricted Thought process: guarded Thought Content: unable to assess Cognition:intact Insight:poor Judgment:fair Interventions PRN's used: cough syrup Therapeutic interventions:1:1, assessment, medication administration and monitored effects and side effects to meds, Q15 checks for safety, education on changes in meds, pt verbalized understanding. Restraints/seclusion/emergency medication:none Justification of Continued Inpatient Treatment:Pt admitted due to DTS and continues to endorse thoughts of suicide.
[2018-09-07] MEDS ORDERED: benzocaine/menthol oral lozeng 1 EACH BOX MM PRN (17:10)
[2018-09-07 20:11] VITALS: BP 117/82
[2018-09-07] MEDS: OLANZapine 5mg rapidly disint. tablet PO SCH (20:20)
[2018-09-07] MEDS: acetaminophen 325mg tablet PO PRN (20:21)
--- NOTE | 2018-09-08 00:37 | NUR ---
Nursing Progress Note: Chief Complaint: anhedonia, MDD, anxiety Legal hold: voluntary Client involuntary status for DTS. Report received from William GALLARDO with use of SBAR. Why are they here:Pt here due to thoughts of suicide with plan to OD on meds, depression, hx of previous OD, currently homeless. Diagnosis/presenting symptoms:depression/ S/I Assessment Patient watches a movie in the group room with other patients. Loss Prevention Detective approaches pt and asks how he is doing today and he responds, "pretty good today." Loss Prevention Detective asks if pt is still feeling suicidal and he replies, "no, not today, I am feeling depressed still, but not suicidal." Pt continues to watch movie with peers and laugh and make jokes. He did say his chest is beginning to feel better and utilizes PRN cough syrup and throat lozenges. S/I, H/I: "no, not today." A/VH: denies Sleep:see sleep assessment notation ADL's: independent Group attendance:no groups scheduled, manager shift Were meds taken: yes Any med S/E: denies and none observed Mental Status Exam Appearance:well groomed Eye contact:good Behavior:pleasant and cooperative, watches movie and laughs Speech: normal rate, rhythm and volume Mood:elevated Affect: pleasant Thought process:linear Thought Content:WNL, no delusions Cognition:intact Insight:fair Judgment:fair Interventions PRN's used:none Therapeutic interventions:1:1, assessment, medication administration and monitored effects and side effects to meds, Q15 checks for safety, education on changes in meds, pt verbalized understanding. Restraints/seclusion/emergency medication:none Justification of Continued Inpatient Treatment:Pt admitted due to DTS and continues to endorse thoughts and feelings of depression.
[2018-09-08 08:00] VITALS: BP 110/69
[2018-09-08] MEDS: azithromycin 250mg tablet PO SCH (08:17)
[2018-09-08] MEDS: DESCOVY PO SCH (08:18)
[2018-09-08] MEDS: hydrOXYzine 25 MG tablet PO SCH ×2 (08:18→20:44)
[2018-09-08] MEDS: TIVICAY 50 MG PO SCH (08:18)
[2018-09-08] MEDS: citalopram 20mg tablet PO SCH (08:18)
[2018-09-08] MEDS: guaiFENesin/DM 10ml UD oral syrup PO PRN (16:59)
--- NOTE | 2018-09-08 17:21 | NUR ---
Nursing Progress Note: Chief Complaint: anhedonia, MDD, anxiety Legal hold: voluntary Client involuntary status for DTS. Report received from Cande GALLARDO with use of SBAR. Why are they here:Pt here due to thoughts of suicide with plan to OD on meds, depression, hx of previous OD, currently homeless. Diagnosis/presenting symptoms: MDD (major depressive disorder), recurrent, severe, with psychosis, Social anxiety disorder Assessment Patient gets up to take morning medicaitons. He is not conversational. He goes to group room to eat breakfast with others and then directly after returns to his room. He does not get up for morning group and when asked states Im going to the 2:00 group. He denies any needs other than sleep. Patient is observed attending afternoon group and then promply returns to his room to sleep. He keeps his face covered from the light. Patient leaves him room around 1700 and requests cough syrup, he denies sore throat. He sits with others in group room to health system tbrit RN attempted to engaged patient in conversation. Patient states that he is not feeling suicidal but is still depressed. He then states I dont want to talk about it. S/I, H/I: denies A/VH: none reported Sleep:slept 7.75hrs last night and slept late in the morning ADL's: independent, showered today Group attendance: attended afternoon group Were meds taken: yes Any med S/E: none reported, none observed Mental Status Exam Appearance: appropriate Eye contact: none Behavior: cooperative, not engaging, distant Speech:soft tone, not conversational Mood: depresssed Affect: flat Thought process:linear Thought Content:WNL Cognition: A/Oxs4 Insight:fair Judgment:fair Interventions PRN's used:none Therapeutic interventions: Attempted 1:1 therapeutic conversation and bulid rapport, Q15 checks for safety. Restraints/seclusion/emergency medication: none Justification of Continued Inpatient Treatment: Pt admitted due to DTS and continues to endorse thoughts and feelings of depression. Continued therapeutic support and medication management needed to provide stabalization, prevent decomensation, decreasing risk to patinet and readmittance.
[2018-09-08] MEDS: OLANZapine 5mg rapidly disint. tablet PO SCH (20:44)
[2018-09-08 20:45] VITALS: BP 109/71
--- NOTE | 2018-09-09 01:25 | NUR ---
Nursing Progress Note: Chief Complaint: Anhedonia, MDD, anxiety Legal hold: voluntary Client involuntary status for DTS. Report received from Stefany GALLARDO. Why are they here:Patient here due to thoughts of suicide with plan to OD on medications, depression, hx of previous OD, currently homeless. Diagnosis/presenting symptoms: MDD (major depressive disorder), recurrent, severe, with psychosis, Social anxiety disorder Assessment Patient is up in the group room at change of shift. When greeted patient stares blankly and appears annoyed. He later states his frustration at receiving a new roommate, during is assessment. Patient agrees to 1:1 assessment but refuses to leave group room, and okays assessment being done in the group room. Patient expresses he is still depressed, but denies SI. He spends the majority of the shift in the group room watching TV, with minimal to no interaction with others. Once he receives his HS medications he watches some more TV, then turns himself to his room and puts himself to bed. S/I, H/I: Denies A/VH: None Reported Sleep: Currently Sleeping ADL's: Independents Group attendance: No groups this shift Were meds taken: Yes Any med S/E: None reported or observed Mental Status Exam Appearance: Appropriate, well groomed Eye contact: None Behavior: Cooperative, minimal engagement in conversation Speech: Normal volume, rate and rhythm Mood: Depressed Affect: Congruent to mood, flat Thought process: Linear Thought Content:WNL Cognition: A/O x4 Insight: Fair Judgment: Fair Interventions PRN's used: None Therapeutic interventions: 1:1 assessment with patient. Provided safe therapeutic environment to attempt to establish rapport. Medication education, and administration. Monitor for medication side effects. Q 15 minute safety checks. Restraints/seclusion/emergency medication: None Justification of Continued Inpatient Treatment: Patient admitted due to DTS and continues to endorse thoughts and feelings of depression. Continued therapeutic support and medication management needed to provide stabilization, prevent decompensation, decreasing risk to patient and readmittance.
[2018-09-09 08:00] VITALS: BP 108/66
[2018-09-09] MEDS: hydrOXYzine 25 MG tablet PO SCH ×2 (08:02→20:10)
[2018-09-09] MEDS: citalopram 20mg tablet PO SCH (08:02)
[2018-09-09] MEDS: TIVICAY 50 MG PO SCH (08:03)
[2018-09-09] MEDS: DESCOVY PO SCH (08:03)
[2018-09-09] MEDS: guaiFENesin/DM 10ml UD oral syrup PO PRN (15:35)
--- NOTE | 2018-09-09 17:16 | NUR ---
Nursing Progress Note: Chief Complaint: anhedonia, MDD, anxiety Legal hold: voluntary Client involuntary status for DTS. Report received from Cande GALLARDO with use of SBAR. Why are they here:Pt here due to thoughts of suicide with plan to OD on meds, depression, hx of previous OD, currently homeless. Diagnosis/presenting symptoms: MDD (major depressive disorder), recurrent, severe, with psychosis, Social anxiety disorder Assessment Patient gets up to take morning medications. He again, is not conversational. Patient denies any questions related to his medications and requests to not be bothered. Patient did join others in the group room for breakfast and then promptly returned to his bed. In the afternoon patient met with Gunjan with [facility]. Plan is to have patient discharge to [facility]. Reports received that after this meeting patient stated This is the best day of my life and engaged in conversation with others r/t [facility]. Patient then takes a shower and changes clothing. He is observed int he Rec room looking out the window. His affect is softened and he makes direct eye contact. S/I, H/I: denies A/VH: none reported Sleep: reports sleeping well and slept late in the morning ADL's: independent, showered today Group attendance: attended afternoon group Were meds taken: yes Any med S/E: none reported, none observed Mental Status Exam Appearance: appropriate Eye contact: direct eey contact made twice Behavior: cooperative, not engaging, distant (prior to meeting with Dianna Weems) Speech: soft tone, not conversational Mood: depressed Affect: flat Thought process:linear Thought Content:WNL Cognition: A/Oxs4 Insight:fair Judgment:fair Interventions PRN's used:none Therapeutic interventions: Attempted 1:1 therapeutic conversation and build rapport, Q15 checks for safety. Restraints/seclusion/emergency medication: none Justification of Continued Inpatient Treatment: Pt admitted due to DTS and continues to endorse thoughts and feelings of depression. Continued therapeutic support and medication management needed to provide stabilization, prevent decompensation, decreasing risk to patient and readmittance.
[2018-09-09 20:00] VITALS: BP 123/77
[2018-09-09] MEDS: OLANZapine 5mg rapidly disint. tablet PO SCH (20:13)
--- NOTE | 2018-09-09 23:26 | NUR ---
Nursing Progress Note: Chief Complaint: Anhedonia, MDD, anxiety Legal hold: Voluntary Client involuntary status for DTS. Report received from Stefany GALLARDO. Why are they here: Patient here due to thoughts of suicide with plan to OD on medications, depression, hx of previous OD, currently homeless. Diagnosis/presenting symptoms: MDD (major depressive disorder), recurrent, severe, with psychosis, Social anxiety disorder Assessment Patient is up in the group room at change of shift. He is met in the recreation room for a 1;1 assessment. he makes direct eye contact, and discuses how he will be going to "[facility] and then excitedly but almost in a shocked manner states "it's going to be paid for." Patient denies SI, and expresses depression still. However he has a positive outlook now that he was accepted to [facility], and [facility]. Patient is more upbeat this shift, interacting with others, and interacting with staff. He requests his evening medications at 8pm. Medications are administered and educated on. He then spends sometime in the recreation room watching TV before turning to bed. S/I, H/I: Denies A/VH: None Reported Sleep: Currently Sleeping ADL's: Independents Group attendance: No groups this shift Were meds taken: Yes Any med S/E: None reported or observed Mental Status Exam Appearance: Appropriate, well groomed Eye contact: Direct Behavior: Cooperative, engaged in conversation Speech: Normal volume, rate and rhythm Mood: Depressed, with hopeful outlook due to recent situation change Affect: Congruent to mood, flat Thought process: Linear Thought Content:WNL Cognition: A/O x4 Insight: Fair Judgment: Fair Interventions PRN's used: None Therapeutic interventions: 1:1 assessment with patient. Provided safe therapeutic environment to attempt to maintain rapport. Medication education, and administration. Monitor for medication side effects. Q 15 minute safety checks. Restraints/seclusion/emergency medication: None Justification of Continued Inpatient Treatment: Patient admitted due to DTS and continues to endorse thoughts and feelings of depression. Continued therapeutic support and medication management needed to provide stabilization, prevent decompensation, decreasing risk to patient and readmittance.
[2018-09-10 08:00] VITALS: BP 105/69
[2018-09-10] MEDS: citalopram 20mg tablet PO SCH (08:15)
[2018-09-10] MEDS: hydrOXYzine 25 MG tablet PO SCH ×2 (08:15→20:22)
[2018-09-10] MEDS: DESCOVY PO SCH (08:16)
[2018-09-10] MEDS: TIVICAY 50 MG PO SCH (08:16)
--- NOTE | 2018-09-10 09:24 | NUR ---
1:1 DISCHARGE PLANNING SW met with pt regarding discharge plan for [facility], food, clothing and safety. Pt had previous declined to meet with this brief writer several times, however chose to meet shortly after lunch. Pt informed this brief writer he had not been linked to [facility] specialty case management program, but had heard about it. SW informed pt of resources available to housing, medical tx, transportation and continued basic needs. SW reminded pt of SW working with him previously in another setting and requested permission to discuss his substance use recovery (KAYLYN) needs. Pt states he would like his recovery needs met and his desire to enter tx through [facility]. SW requested permission to link pt to CM through [facility] and potential funding for his tx through this program. Pt agreed. REGGIE Vasques from [facility] met with pt. Pt agreed to begin services and work with program for V[facility] tx payment and linkages to resources to reduce challenges regarding basic needs. SW informed pt SW would follow up with him in the morning. Pt affect changed Addendum: 09/10/18 at 1128 by Stefany Mills SS SW finished incomplete note. Late entry. Pt affect changed dramatically. He began engaging in groups, disclosed that he discontinues HIV medication as a form of attempting suicide because his depression has become severe. Pt reports diagnosis occurred approximatley one year ago, which has increased his depression. [facility] REGGIE Vasques SHELIA Samuels
--- NOTE | 2018-09-10 16:21 | NUR ---
Nursing Progress Note: Chief Complaint: Anhedonia, MDD, anxiety Legal hold: Voluntary Client involuntary status for DTS. Report received from China GALLARDO. Why are they here: Patient here due to thoughts of suicide with plan to OD on medications, depression, Hx of previous OD, currently homeless. Diagnosis/presenting symptoms: MDD (major depressive disorder), recurrent, severe, with psychosis, Social anxiety disorder Assessment Pt admits to depression 12/24, denies SI/HI/AH/VH, states, "I'm just bored." Pt aware that discharge is being arranged for early next week, expressed contentment with this. Pt out of room for meals, watches TV in community room and rec room, no unsafe behaviors noted. S/I, H/I: Pt denies A/VH: Pt denies Sleep: Slept 8 hours per noc shift report ADL's: Independent Group attendance: did not attend morning group Were meds taken: Yes Any med S/E: None reported or observed Mental Status Exam Appearance: Appropriate Eye contact: Good Behavior: Cooperative, isolates to self Speech: Normal volume, rate and rhythm Mood: Depressed, bored Affect: Congruent to mood, blunted, depressed Thought process: Linear, goal oriented Thought Content: Focused on pending discharge Cognition: A/O x4 Insight: Fair Judgment: Fair Interventions PRN's used: None Therapeutic interventions: 1:1 assessment, medication administration & monitoring, therapeutic conversation, Q 15 minute checks. Restraints/seclusion/emergency medication: None Justification of Continued Inpatient Treatment: Patient has stabilized, placement pending, discharge likely early next week to [facility].
[2018-09-10 19:00] VITALS: BP 112/68
[2018-09-10] MEDS: temazepam 15mg capsule PO SCH (20:22)
[2018-09-10] MEDS: OLANZapine 5mg rapidly disint. tablet PO SCH (20:22)
--- NOTE | 2018-09-10 22:49 | NUR ---
Nursing Progress Note: Chief Complaint: depression, S/I with plan to OD on meds Legal hold: Voluntary Report received from Kristie GALLARDO. Why are they here: Patient here due to thoughts of suicide with plan to OD on medications, depression, Hx of previous OD, currently homeless. Diagnosis/presenting symptoms: MDD (major depressive disorder), recurrent, severe, with psychosis, Social anxiety disorder Assessment What happened this shift: Pt up and visible on the unit, he was watching tv, interacting with peers/staff. Pt c/o anxiety and boredom and requested something to help him sleep. He met with Dr Vieira and order for Restoril 30 mg for insomnia and Zyprexa increased to 10 mg to help with his sleep. Pt is happy about plan to discharge to [facility]. Pt wanted meds at 8pm and then went to bed. S/I, H/I: Pt denies A/VH: Pt denies Sleep: sleeping well ADL's: Independent Group attendance: no groups scheduled this shift Were meds taken: Yes Any med S/E: None reported or observed Mental Status Exam Appearance: well groomed, wearing green scrubs Eye contact: Good Behavior: Cooperative, anxious Speech: Normal volume, rate and rhythm Mood: Depressed, bored Affect: Congruent to mood, blunted, depressed Thought process: Linear, goal oriented Thought Content: Focused on pending discharge Cognition: A/O x4 Insight: Fair Judgment: Fair Interventions PRN's used: None Therapeutic interventions: 1:1 assessment, medication administration & monitoring, therapeutic conversation, Q 15 minute checks. Restraints/seclusion/emergency medication: None Justification of Continued Inpatient Treatment: Patient has stabilized, placement pending, discharge likely early next week to [facility].
[2018-09-11 08:00] VITALS: BP 111/67
[2018-09-11] MEDS: citalopram 20mg tablet PO SCH (08:35)
[2018-09-11] MEDS: hydrOXYzine 25 MG tablet PO SCH ×2 (08:36→20:33)
[2018-09-11] MEDS: DESCOVY PO SCH (08:37)
[2018-09-11] MEDS: TIVICAY 50 MG PO SCH (08:37)
--- NOTE | 2018-09-11 15:19 | NUR ---
Nursing Progress Note: Chief Complaint: Anhedonia, MDD, anxiety Legal hold: Voluntary Client involuntary status for DTS. Report received from Rafaela GALLARDO. Why are they here: Patient here due to thoughts of suicide with plan to OD on medications, depression, Hx of previous OD, currently homeless. Diagnosis/presenting symptoms: MDD (major depressive disorder), recurrent, severe, with psychosis, Social anxiety disorder Assessment Recieved Pt in bed at change of shift. Irritated at light coming from hallway and being woken. Pts mood improved during assessment and morning meds. Awake in group room for meals, but did not attend groups. Short responses to questions and stated he wanted to be left alone. Stared out window for a while after lunch and returned to bed to read a book. Overall depressed mood and flat affect. Calm and cooperative. When asked about discharge to [facility] he said he thought it would be good. S/I, H/I: Pt denies A/VH: Pt denies Sleep: Good ADL's: Independent Group attendance: did not attend groups Were meds taken: Yes Any med S/E: None reported or observed Mental Status Exam Appearance: Appropriate Eye contact: Good Behavior: Cooperative, isolates to self Speech: Normal volume, rate and rhythm Mood: Depressed, bored Affect: Congruent to mood, blunted, depressed Thought process: Linear, goal oriented Thought Content: Focused on pending discharge Cognition: A/O x4 Insight: Fair Judgment: Fair Interventions PRN's used: None Therapeutic interventions: 1:1 assessment, medication administration & monitoring, therapeutic conversation, Q 15 minute checks, therapeutic milieu maintained. Restraints/seclusion/emergency medication: None Justification of Continued Inpatient Treatment: Patient has stabilized, placement pending, discharge likely early next week to [facility].
[2018-09-11 19:00] VITALS: BP 111/66
[2018-09-11] MEDS: OLANZapine 5mg rapidly disint. tablet PO SCH (20:32)
[2018-09-11] MEDS: temazepam 15mg capsule PO SCH (20:34)
--- NOTE | 2018-09-12 00:40 | NUR ---
Nursing Progress Note: Chief Complaint: Anhedonia, MDD, anxiety Legal hold: Voluntary Client involuntary status for DTS. Report received from SAMI Hatfield. Why are they here: Patient here due to thoughts of suicide with plan to OD on medications, depression, Hx of previous OD, currently homeless. Diagnosis/presenting symptoms: MDD (major depressive disorder), recurrent, severe, with psychosis, Social anxiety disorder Assessment Received this patient at change of shift. This patient is in the Community room. He is conversing with other patients. The patient watched a couple of movies, he occasionally laughs, he explains the plots to others. This patient presents as linear. He admits to some depression but denies S/I or H/I. This patient is medication compliant. The patient requested his medication on time as he wants to sleep early. Patient states he is excited at possibility of being transfered soon to the [facility].. S/I, H/I: Pt denies A/VH: Pt denies Sleep: Good ADL's: Independent Group attendance: No group on nights. Were med's taken: Yes Any med S/E: None reported or observed Mental Status Exam Appearance: Appropriate Eye contact: Good Behavior: Cooperative, isolates to self Speech: Normal volume, rate and rhythm Mood: Depressed, bored Affect: Congruent to mood, blunted, depressed Thought process: Linear, goal oriented Thought Content: Focused on pending discharge Cognition: A/O x4 Insight: Fair Judgment: Fair Interventions PRN's used: None Therapeutic interventions: 1:1 assessment, medication administration & monitoring, therapeutic conversation, Q 15 minute checks. Restraints/seclusion/emergency medication: None Justification of Continued Inpatient Treatment: Patient has stabilized, placement pending, discharge likely early next week to [facility].
[2018-09-12 07:50] VITALS: BP 117/70
[2018-09-12] MEDS: hydrOXYzine 25 MG tablet PO SCH ×2 (07:57→20:05)
[2018-09-12] MEDS: citalopram 20mg tablet PO SCH (07:57)
[2018-09-12] MEDS: DESCOVY PO SCH (07:58)
[2018-09-12] MEDS: TIVICAY 50 MG PO SCH (07:58)
--- NOTE | 2018-09-12 14:54 | NUR ---
Nursing Progress Note: Chief Complaint: depression, S/I with plan to OD on meds Legal hold: N/A, pt is voluntary Report received from Nathan GALLARDO with use of SBAR Why are they here: Patient here due to thoughts of suicide with plan to OD on medications, depression, Hx of previous OD, currently homeless. Diagnosis/presenting symptoms: MDD (major depressive disorder), recurrent, severe, with psychosis, Social anxiety disorder Assessment What happened this shift: Pt up for breakfast, cooperative with medications, returned to bed after breakfast and did not get up until lunch. Pt is quiet, restricted, avoidant, isolative to self, did watch TV in rec room after lunch, reluctant to participate in mental health assessment, somewhat dismissive of staff, denied all symptoms including depression today. Pt initially did not fill out his menu this am stating he was leaving tomorrow, encouraged pt to fill out as unsure what time discharge will occur if it does indeed occur tomorrow. S/I, H/I: Pt denies A/VH: Pt denies Sleep: Pt sleeps at night and takes naps during the day ADL's: Independent Group attendance: No groups today Were meds taken: Yes Any med S/E: None reported or observed Mental Status Exam Appearance: Neat, clean Eye contact: Good Behavior: Isolative, avoidant, constricted Speech: Normal volume, rate and rhythm Mood: Slightly irritable, does not seem to want to deal with people today Affect: Constricted Thought process: Linear, goal oriented Thought Content: Focused on pending discharge Cognition: A/O x4 Insight: Fair Judgment: Fair Interventions PRN's used: None Therapeutic interventions: 1:1 assessment, medication administration & monitoring, encouraged to express thoughts & feelings, Q 15 minute checks. Restraints/seclusion/emergency medication: None Justification of Continued Inpatient Treatment: Patient has stabilized, placement pending, possible discharge tomorrow to [facility].
[2018-09-12 19:55] VITALS: BP 125/75
[2018-09-12] MEDS: temazepam 15mg capsule PO SCH (20:06)
[2018-09-12] MEDS: OLANZapine 5mg rapidly disint. tablet PO SCH (20:07)
[2018-09-12] MEDS ORDERED: BENZ1LOZ30 MM (20:38)
[2018-09-12] MEDS ORDERED: HYDR50TA65 PO (20:38)
[2018-09-12] MEDS ORDERED: OLAN10TA19 PO (20:38)
[2018-09-12] MEDS ORDERED: ESCI10TA54 PO (20:38)
--- NOTE | 2018-09-12 23:08 | NUR ---
Nursing Progress Note: Chief Complaint: depression, S/I with plan to OD on meds Legal hold: N/A, pt is voluntary Report received from Kristie GALLARDO with use of SBAR Why are they here: Patient here due to thoughts of suicide with plan to OD on medications, depression, Hx of previous OD, currently homeless. Diagnosis/presenting symptoms: MDD (major depressive disorder), recurrent, severe, with psychosis, Social anxiety disorder Assessment What happened this shift: Pt is watching TV and socializing with other patients. He denies feeling depressed or suicidal at this time. He explains that is is very excited to be possibly discharging tomorrow and is happy to be going to [facility]. He requests to shower and shave, which he does. Pt said he wants to look clean and neat for discharge. Pt makes good eye contact and is goal oriented. S/I, H/I: Pt denies A/VH: Pt denies Sleep: see sleep assessment notation ADL's: Independent Group attendance: chip unloader, no groups Were meds taken: Yes Any med S/E: None reported or observed Mental Status Exam Appearance: showered and shaved this shift Eye contact: Good Behavior: Watches TV, socializes with other patients Speech: Normal volume, rate and rhythm Mood: upbeat Affect: pleasant Thought process: Linear, goal oriented Thought Content: Focused on pending discharge Cognition: A/O x4 Insight: Fair Judgment: Fair Interventions PRN's used: None Therapeutic interventions: 1:1 assessment, medication administration & monitoring, encouraged to express thoughts & feelings, Q 15 minute checks. Restraints/seclusion/emergency medication: None Justification of Continued Inpatient Treatment: Patient has stabilized, placement pending, possible discharge tomorrow to [facility].
[2018-09-13] MEDS: citalopram 20mg tablet PO SCH (07:57)
[2018-09-13] MEDS: DESCOVY PO SCH (07:57)
[2018-09-13] MEDS: TIVICAY 50 MG PO SCH (07:57)
[2018-09-13] MEDS: hydrOXYzine 25 MG tablet PO SCH (07:57)
[2018-09-13 08:00] VITALS: BP 105/69
--- NOTE | 2018-09-13 11:35 | NUR ---
NURSING DISCHARGE NOTE The patient was discharged today to attend [facility]. He was picked up by [facility] representatives for transport. His medications were called in to [facility] on [address] He left with all belongings and instructions and all personal medications that were being held in the hospital pharmacy. He denies suicidal thoughts. He was smiling and happy stating, "I'm really looking forward to this opportunity." He was escorted to the lobby by SAIMA Michelle.
== END 2018-09-13 11:35 | disposition short-term general hospital (02) | DRG 751 ==
LOC: ADULT MH 13:40
PROVIDERS: ADMIT Psychiatry & Neurology Psychiatry; ATTEND Psychiatry & Neurology Psychiatry
DX: F33.3 Major depressive disorder, recurrent, severe with psychotic symptoms (principal); R45.851 Suicidal ideations; K50.90 Crohn's disease, unspecified, without complications; F15.10 Other stimulant abuse, uncomplicated; F13.10 Sedative, hypnotic or anxiolytic abuse, uncomplicated; J06.9 Acute upper respiratory infection, unspecified; F40.10 Social phobia, unspecified; Z59.0 Homelessness; Z72.0 Tobacco use; Z79.899 Other long term (current) drug therapy; Z88.1 Allergy status to other antibiotic agents; Z56.0 Unemployment, unspecified
CPT/HCPCS: 36415; 71045; 80048; 80061; 82308; 83036; 85025; 87070; 87502; 87503; Q0177

== ENCOUNTER 2018-11-18 05:39 | Emergency (ER) | payer MEDICAID, OTHER ==
[~2018-11-18] VITALS: Ht 180.3 cm; Wt 65.0 kg
[~2018-11-18 05:39] MED LIST changes: +EMTR1TAB18 PEG; +ESCI10TA PO; -ESCI5TAB PO; +OLAN10TA3 PO; -OLAN5TAB3 PO
[2018-11-18 05:59] VITALS: BP 119/86
--- NOTE | 2018-11-18 07:00 | NUR ---
PT REFUSING TO ANSWER QUESTIONS AND STATES "ALL MY INFO IS IN THE SYSTEM". PT STATES "I'M SUICIDAL!... I NEED SOME HELP". PT ANSWERS YES THAT HE HEARS VOICES AND SEES THINGS OTHERS DONT BUT WILL NOT SAY WHAT HE SEES OR HEARS. Addendum: 11/18/18 at 0854 by CHOLO NOTE WRITTEN UNDER WRONG USER, NOTE WRITTEN BY SAMI SHER.
[2018-11-18 07:49] LABS: BASOPHILS % (AUTO) 0.3 % (0-1); EOSINOPHILS # (AUTO) 0.1 X10'3 (0-0.9); EOSINOPHILS % (AUTO) 1.1 % (0-6); HEMATOCRIT 44.5 % (42.0-52.0); HEMOGLOBIN 15.9 g/dl (14.0-17.9); LYMPHOCYTES % (AUTO) 33.9 % (21-51); MEAN CORPUSCULAR HEMOGLOBIN 30.9 PG (27.0-31.0); MEAN CORPUSCULAR HGB CONC 35.7 g/dL (33.0-36.5); MEAN CORPUSCULAR VOLUME 86.5 FL (78-98); MEAN PLATELET VOLUME 7.7 FL (7.4-10.4); MONOCYTES # (AUTO) 0.6 X10'3 (0-0.9); MONOCYTES % (AUTO) 10.8 % (2-12); NEUTROPHILS # (AUTO) 3.1 X10'3 (1.8-7.7); NEUTROPHILS % (AUTO) 53.9 % (42-75); PLATELET COUNT 250 X10'3 (140-440); RED BLOOD COUNT 5.14 X10'6 (4.70-6.10); RED CELL DISTRIBUTION WIDTH 14.8 % (11.5-14.5); WHITE BLOOD COUNT 5.8 X10'3 (4.5-11.0)
[2018-11-18 07:57] LABS: ALANINE AMINOTRANSFERASE 19 U/L (12-78); ALBUMIN 3.4 G/DL (3.4-5.0); ALBUMIN/GLOBULIN RATIO 0.8 (1.1-1.5); ALKALINE PHOSPHATASE 93 IU/L (46-116); ANION GAP 9 (8-16); ASPARTATE AMINO TRANSFERASE 17 U/L (10-37); BILIRUBIN,TOTAL 0.5 MG/DL (0.1-1.0); BLOOD UREA NITROGEN 13 MG/DL (7-18); BUN/CREATININE RATIO 12.5 (5.4-32.0); CALCIUM 8.7 MG/DL (8.5-10.1); CHLORIDE 102 MMOL/L (99-107); CREATININE 1.04 MG/DL (0.60-1.10); GLUCOSE 107 MG/DL (70-104); POTASSIUM 3.4 MMOL/L (3.5-5.1); SODIUM 137 MMOL/L (135-145); TOTAL CARBON DIOXIDE 26.3 MMOL/L (24-32); TOTAL PROTEIN 7.6 G/DL (6.4-8.2); eGFR 81 ML/MIN
[2018-11-18 08:10] LABS: ETHANOL < 0.010 GM/DL (0.0-0.010)
--- NOTE | 2018-11-18 08:30 | NUR ---
PT CURRENTLY BEING INTERVIEWED BY SOC TELEPSYCHIATRIST.
--- NOTE | 2018-11-18 08:45 | NUR ---
PT HAD BECOME UPSET DURING TELEPSYCH INTERVIEW. PSYCHIATRIST SPOKE WITH ER MD HONG AND INFORMED PT DOES NOT MEET CRITERIA FOR HOLD. PT STARTED ESCILATING AND WAS YELLING. PT REFUSING PRINTED DISCHARGE PAPERWORK AND WALKING OUT WITH SECURITY.
== END 2018-11-18 09:03 | disposition home or self-care (01) ==
LOC: ER 05:40
DX: R45.851 Suicidal ideations (principal); F20.9 Schizophrenia, unspecified; F29 Unspecified psychosis not due to a substance or known physiological condition; F15.90 Other stimulant use, unspecified, uncomplicated; Z88.1 Allergy status to other antibiotic agents; Z79.899 Other long term (current) drug therapy
CPT/HCPCS: 36415; 80053; 80320; 84443; 85025; 99284

== ENCOUNTER 2018-11-30 02:35 | Emergency (ER) | payer OTHER ==
[2018-11-30] MEDS ORDERED: HYDR-3686 PO (07:42)
[2018-11-30] MEDS ORDERED: OLAN10TA3 PO (07:42)
[2018-11-30] MEDS ORDERED: ESCI10TA PO (07:42)
== END 2018-11-30 02:54 | disposition left against medical advice (07) ==
LOC: ER 02:35
DX: R41.0 Disorientation, unspecified (principal); Z53.21 Procedure and treatment not carried out due to patient leaving prior to being seen by health care provider

== ENCOUNTER → 2018-12-07 | Emergency (ER) | payer MEDICAID, OTHER ==
[~2018-12-07] VITALS: Ht 180.3 cm; Wt 74.1 kg
[~2018-12-07] MED LIST changes: +LORazepam 1 MG tablet PO ONE; +diphenhydrAMINE 25mg capsule PO PRN
[2018-12-07 10:15] LABS: BASOPHILS % (AUTO) 0.7 % (0-1); EOSINOPHILS # (AUTO) 0.1 X10'3 (0-0.9); HEMATOCRIT 42.3 % (42.0-52.0); HEMOGLOBIN 14.8 g/dl (14.0-17.9); LYMPHOCYTES # (AUTO) 2.5 X10'3 (1.1-4.8); LYMPHOCYTES % (AUTO) 43.6 % (21-51); MEAN CORPUSCULAR HEMOGLOBIN 30.5 PG (27.0-31.0); MEAN CORPUSCULAR HGB CONC 35.1 g/dL (33.0-36.5); MEAN PLATELET VOLUME 7.5 FL (7.4-10.4); MONOCYTES # (AUTO) 0.5 X10'3 (0-0.9); MONOCYTES % (AUTO) 8.9 % (2-12); NEUTROPHILS # (AUTO) 2.5 X10'3 (1.8-7.7); NEUTROPHILS % (AUTO) 44.8 % (42-75); PLATELET COUNT 236 X10'3 (140-440); RED BLOOD COUNT 4.86 X10'6 (4.70-6.10); WHITE BLOOD COUNT 5.6 X10'3 (4.5-11.0)
[2018-12-07 10:29] LABS: ALANINE AMINOTRANSFERASE 19 U/L (12-78); ALBUMIN/GLOBULIN RATIO 0.8 (1.1-1.5); ALKALINE PHOSPHATASE 91 IU/L (46-116); ANION GAP 5 (8-16); ASPARTATE AMINO TRANSFERASE 16 U/L (10-37); BILIRUBIN,TOTAL 0.5 MG/DL (0.1-1.0); BLOOD UREA NITROGEN 11 MG/DL (7-18); BUN/CREATININE RATIO 10.9 (5.4-32.0); CALCIUM 8.2 MG/DL (8.5-10.1); CHLORIDE 104 MMOL/L (99-107); CREATININE 1.01 MG/DL (0.60-1.10); ETHANOL < 0.010 GM/DL (0.0-0.010); GLUCOSE 94 MG/DL (70-104); POTASSIUM 3.8 MMOL/L (3.5-5.1); SODIUM 136 MMOL/L (135-145); eGFR 84 ML/MIN
--- NOTE | 2018-12-07 11:30 | NUR ---
Patient to overflow from main ER. Requesting sandwich, juice , stating is very hungrey and thirsty. Food and drinks were provided. No distress at this time. Urine obtained
[2018-12-07 11:32] LABS: CLARITY,URINE CLEAR (Clear); COLOR,URINE YELLOW (Yellow); GLUCOSE, URINE NEGATIVE (Neg); KETONES,URINE NEGATIVE (Neg); LEUKOCYTE ESTERASE ,URINE NEGATIVE (Neg); NITRITES, URINE NEGATIVE (Neg); OCCULT BLOOD,URINE NEGATIVE (Neg); PROTEIN,URINE NEGATIVE (Neg); UROBILINOGEN,URINE 0.2 E.U/dL (0.2-1.0)
[2018-12-07 11:37] LABS: UA COLLECTION TYPE CLN CATCH MIDSTREAM
[2018-12-07 11:41] LABS: URINE AMPHETAMINE SCREEN NEGATIVE (Neg); URINE BARBITUATE SCREEN NEGATIVE (Neg); URINE BENZODIAZEPINES SCREEN NEGATIVE (Neg); URINE CANNABINOID SCREEN POSITIVE (Neg); URINE COCAINE SCREEN NEGATIVE (Neg); URINE METHADONE SCREEN NEGATIVE (Neg); URINE OPIATE SCREEN NEGATIVE (Neg); URINE PHENCYCLIDINE SCREEN NEGATIVE (Neg)
--- NOTE | 2018-12-07 13:30 | NUR ---
Patient awakened for lunch, ate and went back to sleep. Lying on left side in no acute distress.
--- NOTE | 2018-12-07 15:02 | NUR ---
Sleeping on right side.
--- NOTE | 2018-12-07 16:30 | NUR ---
Given extra food tray as patient woke up and was hungry, then went back to sleep.
--- NOTE | 2018-12-07 17:26 | NUR ---
Resting on right side. No distress.
--- NOTE | 2018-12-07 20:00 | NUR ---
The patient has been sleeping on his bed. When awakened for the evening assessment his affect was flat and he gave almost no eye contact. His replies to the assessment questions were guarded and minimal. He was agitated and irritable. He reports voices and asked for further details he stated, "I don't know. They tell me to kill myself" He reports feeling depressed and stated he has been thinking about taking an overdose of his medications. He has been staying with friends and/or the [facility]. He stated he has not been taking medications and did not follow up with mental health services after his last discharge from inpatient psych services.
--- NOTE | 2018-12-07 21:45 | NUR ---
The patient is currently resting on his bed
--- NOTE | 2018-12-07 23:25 | NUR ---
The patient appears to be sleeping
--- NOTE | 2018-12-08 01:33 | NUR ---
The patient appears to be asleep
--- NOTE | 2018-12-08 03:10 | NUR ---
The patient appears to be asleep
--- NOTE | 2018-12-08 05:19 | NUR ---
The patient appears to be asleep
[2018-12-08] MEDS: olanzapine 10mg tablet PO SCH (07:50)
[2018-12-08] MEDS: TIVICAY 50 MG PO SCH (07:50)
[2018-12-08] MEDS: DESCOVY PO SCH (07:50)
--- NOTE | 2018-12-08 12:14 | NUR ---
PT IS RESTING IN BED SUPINE, EYES CLOSED, NO AGITATION OBSERVED, REGULAR BREATHING
--- NOTE | 2018-12-08 13:15 | NUR ---
PT IS IN BED, JUST FINISHED HIS LUNCH NO S/S OF AGITATION
--- NOTE | 2018-12-08 14:14 | NUR ---
PT IS IN BED ON RIGHT SIDE, EYES CLOSED NO S/S OF AGITATION
--- NOTE | 2018-12-08 15:03 | NUR ---
PT IS IN BED EYES CLOSED, NO S.S OF DISTRESS
--- NOTE | 2018-12-08 16:14 | NUR ---
pt up oob requests juice, it was obtained for him, no s/s of distress
--- NOTE | 2018-12-08 17:01 | NUR ---
pt was just up to the bathroom, no s/s of agitation
--- NOTE | 2018-12-08 18:10 | NUR ---
pt is laying supine in bed, no s/s of agitation observed
--- NOTE | 2018-12-08 18:58 | NUR ---
pt ate his dinner, now is resting, supine in bed, regular breathing present, no s/s of distress observed
--- NOTE | 2018-12-08 19:58 | NUR ---
pt is in bed. supine, regular breathing present, no s/s of agitation present
--- NOTE | 2018-12-08 20:58 | NUR ---
pt is in bed on right side, regular breathing present, no s/s of distress observed
--- NOTE | 2018-12-08 23:00 | NUR ---
Pt asleep in bed, without distress noted.
--- NOTE | 2018-12-09 01:00 | NUR ---
Pt asleep in bed, without distress noted.
--- NOTE | 2018-12-09 03:00 | NUR ---
Pt asleep in bed, without distress noted.
--- NOTE | 2018-12-09 05:00 | NUR ---
Pt awoke at 0450 and requested some juice and crackers.
--- NOTE | 2018-12-09 07:00 | NUR ---
Asleep upon change of shift observation. Color and breathing WNL. In line of sight of staff.
[2018-12-09] MEDS: DESCOVY PO SCH (08:20)
[2018-12-09] MEDS: TIVICAY 50 MG PO SCH (08:20)
[2018-12-09] MEDS: olanzapine 10mg tablet PO SCH (08:20)
--- NOTE | 2018-12-09 09:00 | NUR ---
Awakened for breakfast. Ate 100% of his meal. Accepted AM medications without comment. When asked how he was feeling, patient said "I'm hearing voices, what do you think?" Avoids prolonged interaction with staff. Avoids eye contact. Admits to suicidal thoughts "from the voices."
--- NOTE | 2018-12-09 11:00 | NUR ---
Remains asleep, on his back. Towel covering his eyes. Color and breathing WNL.
--- NOTE | 2018-12-09 13:00 | NUR ---
Awakened for lunch. Ate 100% of his meal. Returned immediately to sleep. Does not interact with staff except to ask for snacks inbetween meals when he wakes up.
--- NOTE | 2018-12-09 15:10 | NUR ---
Resting in bed. Appears to be asleep. Has a towel covering his eyes. Gets up only to use bathroom. Within line of sight of staff at all times.
--- NOTE | 2018-12-09 15:59 | NUR ---
Awake. Walked to nurse's desk, asking for food. Given a food snack and a beverage.
[2018-12-09] MEDS: OLANZapine 2.5MG tablet PO SCH ×2 (17:32→20:00)
--- NOTE | 2018-12-09 18:30 | NUR ---
Assumed care of pt., pt. sitting up in bed eating dinner at this time. Calm and cooperative, rr even and unlabored. PT. then lays down and returns to sleep, blanket over head.
--- NOTE | 2018-12-09 20:30 | NUR ---
Pt. refuses 1:1 or physical assessment, states, "Leave me alone I'm tying to sleep." Will continue to monitor.
--- NOTE | 2018-12-09 22:30 | NUR ---
Pt up to use the BR, ambulates independently. He is slightly irritable, states, "I can't sleep now!" Pt. requests HS snack and he then returns to bed, will continue to monitor.
--- NOTE | 2018-12-10 00:35 | NUR ---
Pt. sleeping on his back at this time. HOB elevated, rr even and unlabored. Will continue to monitor.
--- NOTE | 2018-12-10 02:32 | NUR ---
Pt. continues to sleep on his back, rr even and unlabored, appears to be resting comfortably.
--- NOTE | 2018-12-10 04:40 | NUR ---
Pt. sleeping on his left side at this time, appears to be resting comfortably, will continue to monitor.
--- NOTE | 2018-12-10 05:50 | NUR ---
Pt. sleeping on his back at this time, rr even and unlabored.
--- NOTE | 2018-12-10 06:30 | NUR ---
Assumed care; pt laying on his back with a pillow case over his eyes. He appears to be sleeping; RR even and unlabored.
--- NOTE | 2018-12-10 08:33 | NUR ---
Pt laying on his back appears to be asleep; RR even and unlabored
[2018-12-10] MEDS: OLANZapine 2.5MG tablet PO SCH ×2 (08:36→20:57)
[2018-12-10] MEDS: TIVICAY 50 MG PO SCH (08:36)
[2018-12-10] MEDS: DESCOVY PO SCH (08:36)
[2018-12-10] MEDS: olanzapine 10mg tablet PO SCH (08:37)
--- NOTE | 2018-12-10 10:18 | NUR ---
Pt sleeping does not want to wake up. He states, "I am fine." Keeps his eyes covered w/a pillow case.
--- NOTE | 2018-12-10 12:20 | NUR ---
Pt appears to be sleeping eyes covered with a pillow case laying on his back; RR even and unlabored.
--- NOTE | 2018-12-10 14:06 | NUR ---
Pt has been sleeping all day. He wakes up to eat then covers his eyes w/a pillow case and appears to be asleep until the next medicaiton.
--- NOTE | 2018-12-10 16:41 | NUR ---
Pt continues to appear asleep w/eyes closed; RR even and unlabored.
--- NOTE | 2018-12-10 18:01 | NUR ---
Pt has slept, ate and snacked throughout the shift. He is medication compliant, calm and cooperative.
--- NOTE | 2018-12-10 19:07 | NUR ---
PT NOT WANTING TO BE TELE PSYCHED, TOLD DAY SHIFT THAT HE "ALWAYS GETS TELE PSYCHED". MESSAGE LEFT AT [facility] TO HAVE PSYCH MD TO SEE PT IN AM.
--- NOTE | 2018-12-10 19:50 | NUR ---
PT STATES, "I JUST WANT TO SLEEP". ENC TO LET STAFF KNOW IF HE HAS ANY NEEDS.
--- NOTE | 2018-12-10 21:01 | NUR ---
MOVED TO MAIN ER ROOM 9.
--- NOTE | 2018-12-10 21:10 | NUR ---
PT MOVED TO MAIN ED BED 9. PT RESTING IN BED AND IS MONITORED BY WOOD GRAINER. ROOM STRIPPED PRIOR TO PT ARRIVAL.
--- NOTE | 2018-12-10 23:10 | NUR ---
PT RESTING IN BED.NO NEEDS AT THIS TIME.
--- NOTE | 2018-12-11 01:15 | NUR ---
PT UP TO URINATE. ASSISTED TO RR WITH RN. PT ESCORTED BACK TO ROOM WHERE IS MONITORED BY TECH IN MAIN ED. PT WITH IN SIGHT OF NURSING STATION
--- NOTE | 2018-12-11 03:00 | NUR ---
PT RESTING IN BED. NO S/S OF DISTRESS OR PAIN. WILL CONTINUE TO MONITOR.
--- NOTE | 2018-12-11 05:33 | NUR ---
TECH IN ROOM TO TAKE MORNING VITALS. PT RESTING ON BACK. NO COMPLAINTS OR NEEDS AT THIS TIME.
--- NOTE | 2018-12-11 07:41 | NUR ---
Nursing Note: Pt laying in bed on his back, respirations even and unlabored, no S&S of distress, will continue to monitor.
[2018-12-11] MEDS: OLANZapine 2.5MG tablet PO SCH (08:40)
[2018-12-11] MEDS: TIVICAY 50 MG PO SCH (08:40)
[2018-12-11] MEDS: DESCOVY PO SCH (08:40)
--- NOTE | 2018-12-11 09:20 | NUR ---
Nursing Note: Pt laying in bed on his back, respirations even and unlabored, no S&S of distress, will continue to monitor.
--- NOTE | 2018-12-11 10:26 | NUR ---
Nursing Note: Pt laying on back, respirations even and unlabored, no S&S of distress, will continue to monitor.
--- NOTE | 2018-12-11 13:44 | NUR ---
Nursing Note: Pt sitting up at side of bed eating lunch. No S&S of distress. Will continue to monitor.
--- NOTE | 2018-12-11 15:15 | NUR ---
Nursing Note: Pt laying in bed on his back, has blanket covering eyes, respirations even and unlabored, no S&S of distress, will conitinue to monitor.
--- NOTE | 2018-12-11 16:23 | NUR ---
Nursing Note: Pt on telephone, he was briefly agitated, but calmed himself. Will continue to monitor.
--- NOTE | 2018-12-11 17:00 | NUR ---
PT MOTHER CALLED AND WANTED TO KNOW POC. GOT OK FROM PATIENT. INFORMED MOTHER AT THIS POINT WILL BE WORKING ON PLACEMENT.
--- NOTE | 2018-12-11 17:48 | NUR ---
Nursing Note: Pt laying in bed on his back, no S&S of distress, will continue to monitor.
--- NOTE | 2018-12-11 18:16 | NUR ---
Nursing Note: CECI Craig from [facility] at pt's bedside for assessment. Will continue to monitor.
--- NOTE | 2018-12-11 18:45 | NUR ---
Pt eating dinner
--- NOTE | 2018-12-11 19:40 | NUR ---
Pt resting comfortably, respirations normal. No s/s of distress.
[2018-12-11] MEDS: OLANZapine 5mg rapidly disint. tablet PO SCH (21:45)
--- NOTE | 2018-12-11 23:27 | NUR ---
Pt resting in bed, respirations normal, no s/s of distress.
--- NOTE | 2018-12-12 00:19 | NUR ---
Pt resting comfortably, respirations normal, no s/s of distress.
--- NOTE | 2018-12-12 02:04 | NUR ---
Pt resting comfortably, respirations normal, no s/s of distress.
--- NOTE | 2018-12-12 03:00 | NUR ---
Pt resting comfortably, respirations normal, no s/s of distress.
--- NOTE | 2018-12-12 04:00 | NUR ---
Pt resting comfortably, respirations normal, no s/s of distress.
--- NOTE | 2018-12-12 04:59 | NUR ---
Pt resting comfortably, respirations normal, no s/s of distress.
--- NOTE | 2018-12-12 07:00 | NUR ---
Pt up to bathroom. Steady gait noted.
--- NOTE | 2018-12-12 08:11 | NUR ---
Sitting up in bed eating breakfast.
[2018-12-12] MEDS: TIVICAY 50 MG PO SCH (08:23)
[2018-12-12] MEDS: DESCOVY PO SCH (08:24)
[2018-12-12] MEDS: OLANZapine 5mg rapidly disint. tablet PO SCH ×2 (08:24→20:53)
[2018-12-12] MEDS: citalopram 20mg tablet PO SCH (08:24)
--- NOTE | 2018-12-12 10:19 | NUR ---
Pt states is still hearing voices that tell him to kill himself. He gives very little information and states he does not want to talk about it.
--- NOTE | 2018-12-12 13:13 | NUR ---
Pt sitting up in bed eating breakfast.
--- NOTE | 2018-12-12 16:38 | NUR ---
Sleeping on back. No distress noted.
--- NOTE | 2018-12-13 01:15 | NUR ---
Pt up to the toilet. Steady gait, no signs of distress.
--- NOTE | 2018-12-13 06:59 | NUR ---
Pt. laying in bed sleeping with blanket over eyes. No S/S of distress noted.
[2018-12-13] MEDS: DESCOVY PO SCH (08:41)
[2018-12-13] MEDS: citalopram 20mg tablet PO SCH (08:42)
[2018-12-13] MEDS: TIVICAY 50 MG PO SCH (08:42)
[2018-12-13] MEDS: OLANZapine 5mg rapidly disint. tablet PO SCH ×2 (08:42→20:41)
--- NOTE | 2018-12-13 09:34 | NUR ---
Pt. awakened for a.m. meds, med compliant. No complaints. Sleeping at this time.
--- NOTE | 2018-12-13 12:10 | NUR ---
Patient has been sleeping most of the morning with blanket over eyes. Requested sandwich, which was provided. Ambulates independently to restroom. Medication compliant.
--- NOTE | 2018-12-13 15:06 | NUR ---
Awakened patient for 1:1. Pt. not wanting to talk. States that he is suicidal. Will not answer any other questions.
--- NOTE | 2018-12-13 17:06 | NUR ---
Patient laying in bed. Pt. is guarded and defensive.
--- NOTE | 2018-12-13 19:15 | NUR ---
PT FRUSTRATED THAT HE HASN'T BEEN ACCEPTED ANYWHERE, ENC TO CONTINUE TO WORK WITH STAFF AND KEEP BEHAVIOR UNDER CONTROL SO THAT STAFF CAN BETTER ADVOCATE FOR PT.
--- NOTE | 2018-12-13 22:15 | NUR ---
RESTING QUIETLY IN BED.
[2018-12-14] MEDS: TIVICAY 50 MG PO SCH (08:27)
[2018-12-14] MEDS: OLANZapine 5mg rapidly disint. tablet PO SCH (08:27)
[2018-12-14] MEDS: citalopram 20mg tablet PO SCH (08:27)
[2018-12-14] MEDS: DESCOVY PO SCH (08:27)
--- NOTE | 2018-12-14 13:36 | NUR ---
GAVE REPORT TO FER FROM [facility] FOR POSSIBLE PLACEMENT. VERIFIED WITH PHARMACY PT HAS 12 DAY SUPPLY LEFT OF ANTIVIRALS OF TODAY AND REPORTED TO FER.
[2018-12-14 17:50] VITALS: BP 121/83
== END | disposition home or self-care (01) ==
LOC: ER 08:57
DX: F20.9 Schizophrenia, unspecified (principal); R45.851 Suicidal ideations; F15.90 Other stimulant use, unspecified, uncomplicated; Z88.1 Allergy status to other antibiotic agents; Z79.899 Other long term (current) drug therapy
CPT/HCPCS: 36415; 80053; 80305; 80320; 81003; 85025; 99285; J3490

== ENCOUNTER 2020-10-11 06:47 | Emergency (ER) | payer MEDICAID, OTHER ==
[~2020-10-11] VITALS: Ht 180.3 cm; Wt 78.6 kg
[~2020-10-11 06:47] MED LIST changes: -LORazepam 1 MG tablet PO ONE; -diphenhydrAMINE 25mg capsule PO PRN
[2020-10-11 06:51] VITALS: BP 125/79
[2020-10-11] MEDS ORDERED: PRED20TA PO (07:07)
[2020-10-11] MEDS ORDERED: predniSONE 20 mg tablet PO ONE (07:10)
== END 2020-10-11 07:19 | disposition home or self-care (01) ==
LOC: ER 06:47
DX: R21 Rash and other nonspecific skin eruption (principal); T45.0X5A Adverse effect of antiallergic and antiemetic drugs, initial encounter; F20.9 Schizophrenia, unspecified; Z88.1 Allergy status to other antibiotic agents; Z79.899 Other long term (current) drug therapy; Y92.89 Other specified places as the place of occurrence of the external cause
CPT/HCPCS: 99283; J7512

== ENCOUNTER 2020-10-17 21:24 | Emergency (ER) | payer MEDICAID ==
[~2020-10-17] VITALS: Ht 180.3 cm; Wt 78.6 kg
[~2020-10-17 21:24] MED LIST changes: +PRED20TA PO
[2020-10-18] MEDS ORDERED: triamcinolone acetonide 40mg/ml inj IM ONE (00:50)
[2020-10-18 01:22] LABS: BASOPHILS # (AUTO) 0.1 X10'3 (0-0.2); BASOPHILS % (AUTO) 0.6 % (0-1); EOSINOPHILS % (AUTO) 11.5 % (0-6); HEMATOCRIT 44.8 % (42.0-52.0); HEMOGLOBIN 15.7 g/dl (14.0-17.9); LYMPHOCYTES # (AUTO) 3.6 X10'3 (1.1-4.8); LYMPHOCYTES % (AUTO) 42.5 % (21-51); MEAN CORPUSCULAR HEMOGLOBIN 31.8 PG (27.0-31.0); MONOCYTES # (AUTO) 0.8 X10'3 (0-0.9); MONOCYTES % (AUTO) 9.6 % (2-12); NEUTROPHILS # (AUTO) 3.1 X10'3 (1.8-7.7); NEUTROPHILS % (AUTO) 35.8 % (42-75); PLATELET COUNT 297 X10'3 (140-440); RED BLOOD COUNT 4.93 X10'6 (4.70-6.10); RED CELL DISTRIBUTION WIDTH 13.2 % (11.5-14.5); WHITE BLOOD COUNT 8.5 X10'3 (4.5-11.0)
[2020-10-18 01:28] LABS: ALANINE AMINOTRANSFERASE 31 U/L (12-78); ALBUMIN 3.8 G/DL (3.4-5.0); ALBUMIN/GLOBULIN RATIO 1.1 (1.1-1.5); ALKALINE PHOSPHATASE 55 IU/L (46-116); ANION GAP 8 (8-16); ASPARTATE AMINO TRANSFERASE 15 U/L (10-37); BILIRUBIN,TOTAL 0.5 MG/DL (0.1-1.0); BLOOD UREA NITROGEN 19 MG/DL (7-18); BUN/CREATININE RATIO 17.6 (5.4-32.0); CALCIUM 8.8 MG/DL (8.5-10.1); CHLORIDE 106 MMOL/L (99-107); CREATININE 1.08 MG/DL (0.60-1.10); GLUCOSE 96 MG/DL (70-104); POTASSIUM 3.9 MMOL/L (3.5-5.1); SODIUM 141 MMOL/L (135-145); TOTAL CARBON DIOXIDE 27.3 MMOL/L (24-32); TOTAL PROTEIN 7.3 G/DL (6.4-8.2); eGFR 77 ML/MIN
[2020-10-18 01:33] LABS: C-REACTIVE PROTEIN < 0.05 MG/DL (0.0-0.5)
[2020-10-18] MEDS ORDERED: DIPH25CA83 PO (02:00)
[2020-10-18] MEDS ORDERED: PRED20TA PO (02:00)
[2020-10-18 02:06] VITALS: BP 97/61
== END 2020-10-18 02:10 | disposition home or self-care (01) ==
LOC: ER 21:24
DX: L50.9 Urticaria, unspecified (principal); F20.9 Schizophrenia, unspecified; Z90.89 Acquired absence of other organs; Z72.89 Other problems related to lifestyle; Z88.1 Allergy status to other antibiotic agents; Z79.899 Other long term (current) drug therapy
CPT/HCPCS: 36415; 80053; 85025; 86140; 96372; 99283; J3301

== ENCOUNTER 2023-06-25 07:04 | Day surgery (SDC) | payer BC, MEDICAID ==
[~2023-06-25] VITALS: Ht 180.3 cm; Wt 75.5 kg
[~2023-06-25 07:04] MED LIST changes: +DIPH25CA83 PO; -PRED20TA PO
[2023-06-25] MEDS ORDERED: AMOX-580 PO (08:04)
[2023-06-25 08:15] VITALS: RESP 16; O2SAT 97
[2023-06-25 08:25] VITALS: BP 130/75; PULSE 63; RESP 16; TEMP 98.2; O2SAT 99
[2023-06-25] MEDS ORDERED: LORazepam 0.5 MG tablet PO ONE ×2 (08:25→09:05)
[2023-06-25 09:38] VITALS: BP 118/74; PULSE 74; RESP 16; O2SAT 97
[2023-06-25 09:43] VITALS: BP 132/78; PULSE 73; RESP 16; O2SAT 96
[2023-06-25 09:48] VITALS: BP 141/78; PULSE 83; RESP 16; O2SAT 98
[2023-06-25 09:52] VITALS: BP 129/77; PULSE 71; RESP 16; O2SAT 98
== END 2023-06-25 10:15 | disposition home or self-care (01) ==
LOC: SSTAY O 07:04
PROVIDERS: ATTEND Radiology Vascular & Interventional Radiology
DX: R59.0 Localized enlarged lymph nodes (principal); F20.9 Schizophrenia, unspecified; F29 Unspecified psychosis not due to a substance or known physiological condition; Z98.890 Other specified postprocedural states; Z88.1 Allergy status to other antibiotic agents; Z79.899 Other long term (current) drug therapy
CPT/HCPCS: 10005